=== PATIENT | female | born 1945 | race Caucasian/White ===

== ENCOUNTER 2018-10-17 14:30 | Inpatient (IN) ==
[2018-10-17] MEDS ORDERED: methylPREDNISolone 125 MG/2 ML VIAL IVP ONE (14:59)
[2018-10-17] MEDS ORDERED: Ipratropium/Albuterol Neb 3 ML IH ONE (14:59)
[2018-10-17 15:29] LABS: Basophils # 0.1 K/mcL (0.0-0.2); Basophils % 0.6 %; Eosinophils # 0.2 K/mcL (0.0-0.6); Eosinophils % 2.1 %; Hematocrit 35.6 % (35.3-44.9); Hemoglobin 10.6 g/dL (11.5-15.4); Immature Granulocytes % 0.7 % (0-4); Lymphocytes # 1.1 K/mcL (0.6-4.6); Lymphocytes % 9.9 %; Mean Corpuscular HGB Conc 29.8 g/dL (31.6-35.5); Mean Corpuscular Hemoglobin 27.2 pg (28.0-33.3); Mean Corpuscular Volume 91.3 fL (83.0-100.0); Mean Platelet Volume 9.9 fL (9.4-12.4); Monocytes # 0.4 K/mcL (0.0-1.3); Monocytes % 4.1 %; Neutrophils # 8.8 K/mcL (1.6-8.9); Platelet Count 330 K/mcL (140-400); Red Cell Distribution Width 14.9 % (11.5-14.5); Segmented Neutrophils % 82.6 %
--- NOTE | 2018-10-17 15:44 | Emergency Department Note ---
Disposition Clinical Impression: Acute exacerbation of chronic obstructive airways disease, Pulmonary edema Disposition: Admitted As Inpatient Referrals: Luciano Figueroa MD [Primary Care Provider] - General Adult HPI - General Chief complaint: ED Shortness of Breath/Dyspnea Stated complaint: SHORTNESS OF BREATH Time Seen by Provider: 10/17/18 14:40 Source: patient Mode of arrival: ambulatory Limitations: no limitations Nursing Notes Reviewed: Yes Vital Signs Reviewed: Yes - History of Present Illness Pain Scale: 0 - Related Data Home Medications Medication Instructions Recorded Confirmed Albuterol Neb [Proventil Neb] 2.5 mg IH Q4H 06/01/16 10/17/18 Aspirin [Lo-Dose Aspirin EC] 81 mg PO DAILY 06/01/16 10/17/18 Budesonide Neb [Pulmicort Neb] 0.25 mg IH BID 06/01/16 10/17/18 Diltiazem CD (24hr) [Cardizem CD] 120 mg PO DAILY 06/01/16 10/17/18 Ferrous Sulfate 325 mg PO BID 06/01/16 10/17/18 Insulin Glargine,Hum.rec.anlog 40 unit SQ DAILY 06/01/16 06/01/16 [Lantus Solostar] Insulin LISPRO [Humalog Kwikpen 0 - 9 unit SQ ACHS 06/01/16 10/17/18 U-100] Levothyroxine [Synthroid] 200 mcg PO QAM 06/01/16 10/17/18 Metoprolol [Lopressor] 50 mg PO BID 06/01/16 06/01/16 Montelukast [Singulair] 10 mg PO QPM 06/01/16 10/17/18 Oxycodone HCl 5 mg PO Q6HR PRN 06/01/16 10/17/18 Pantoprazole Sodium [Protonix] 20 mg PO DAILY 06/01/16 06/01/16 Potassium Chloride [Klor-Con 10 meq PO TIDWM 06/01/16 06/01/16 Sprinkle] Apixaban [Eliquis] 5 mg PO BID 10/17/18 10/17/18 Bumetanide [Bumex] 0.5 mg PO DAILY 10/17/18 10/17/18 Dapagliflozin Propanediol [Farxiga] 5 mg PO DAILY 10/17/18 10/17/18 Gabapentin [Neurontin] 300 mg PO TID 10/17/18 10/17/18 Tramadol HCl [Ultram] 50 mg PO QID PRN 10/17/18 10/17/18 Previous Rx's Medication Instructions Recorded Albuterol Sulfate [Proair Hfa] 1 puff IH QID PRN #0 06/04/16 Allergies Allergy/AdvReac Type Severity Reaction Status Date / Time Iodinated Contrast- Oral and Allergy Intermediate See Verified 06/01/16 12:33 IV Dye Comments adhesive tape Allergy Itching Verified 06/01/16 12:34 pentazocine [From Talwin] AdvReac Hives Verified 06/01/16 04:54 Past Medical History - Past Medical History Attestation: Yes The following information was validated with the patient. Source: patient, nursing notes reviewed Medical history: Reports: arthritis, asthma, atrial fibrillation, CHF, DVT, diabetes, fibromyalgia, GERD, hyperlipidemia, hypertension, thyroid disease, other Psychiatric history: Reports: no psych history - Social History Smoking Status: Former smoker Alcohol use: Reports: none Drug use: Reports: none Physical Exam - General Limitations: no limitations General appearance: alert Course Vital Signs Temperature 98.3 F 10/17/18 14:31 Pulse Rate 117 10/17/18 14:31 Respiratory Rate 24 10/17/18 14:31 Blood Pressure 169/92 10/17/18 14:31 O2 Sat by Pulse Oximetry 83 10/17/18 14:31 Temperature 98.3 F 10/17/18 14:31 Pulse Rate 117 10/17/18 14:31 Respiratory Rate 24 10/17/18 14:31 Blood Pressure 169/92 10/17/18 14:31 O2 Sat by Pulse Oximetry 83 10/17/18 14:31 Oxygen Delivery Oxygen Delivery Nasal Cannula Medical Decision Making - MDM Narrative Medical decision making narrative: I reviewed the patient's medication list - Lab Data Lab results reviewed: Yes I reviewed the patient's lab results. - Radiology Data Radiology results reviewed: Yes I reviewed the patient's radiology results. - EKG Data EKG #1 EKG results narrative: EKG shows atrial fibrillation with a rate of 119 bpm QRS duration 87 ms QT interval 331 ms QTC 466 ms R axis of 90 degrees diffuse repolarization abdomen mildly nonspecific is noted. No ST elevation
[2018-10-17] MEDS ORDERED: Furosemide 40 MG/4 ML VIAL IVP ONE (15:46)
[2018-10-17 15:47] LABS: Alanine Aminotransferase 11 Units/L (7-52); Albumin/Globulin Ratio 0.9 (1.1-2.2); Alkaline Phosphatase 117 Units/L (34-104); Aspartate Amino Transferase 18 Units/L (13-39); BUN/Creatinine Ratio 17 (6-26); Bilirubin,Total 0.5 mg/dL (0.3-1.0); Blood Urea Nitrogen 27 mg/dL (8-23); Calcium 9.9 mg/dL (8.6-10.3); Carbon Dioxide 33 mEq/L (23-29); Chloride 96 mEq/L (98-107); Globulin 4.7 g/dL (2.4-3.5); Glucose 203 mg/dL (70-105); Osmolality,Calculated 293 (280-300); Potassium 4.9 mEq/L (3.5-5.1); Sodium 136 mEq/L (136-145); Total Protein 8.7 g/dL (6.4-8.9); Troponin I < 0.03 ng/mL (< 0.04); eGFR For Non-African Americans 32 (> 60)
[2018-10-17] MEDS ORDERED: Ipratropium/Albuterol Neb 3 ML IH SCH (16:15)
[2018-10-17] MEDS ORDERED: Naloxone 0.4 MG/ML INJ IVP PRN (17:09)
[2018-10-17] MEDS ORDERED: traMADol 50 MG TABLET PO PRN (17:09)
[2018-10-17] MEDS: Ipratropium/Albuterol Neb 3 ML IH SCH ×2 (20:39→23:03)
[2018-10-17] MEDS ORDERED: *HR* Digoxin 0.5 MG/2 ML AMPUL IVP ONE (21:02)
[2018-10-17] MEDS ORDERED: *HR* Dextrose 50 % in Water (Syg) 50 ML SYRINGE IVP PRN (21:04)
[2018-10-17] MEDS ORDERED: D5% in Water 1,000 ML IVC PRN (21:04)
[2018-10-17] MEDS ORDERED: Dextrose Gel 15 GM/37.5 ML TUBE PO PRN ×2 (21:04)
[2018-10-17] MEDS: Apixaban 5 MG TABLET PO SCH (22:30)
[2018-10-17] MEDS: *HR* OxyCODONE Immed Rel 5 MG TABLET PO PRN (22:30)
[2018-10-17] MEDS: Gabapentin 300 MG CAPSULE PO SCH (22:31)
[2018-10-17] MEDS: Insulin LISPRO 300 UNITS/3 ML VIAL SQ SCH (22:33)
[2018-10-17] MEDS: Budesonide Neb 0.25 MG/2 ML IH SCH (22:48)
[2018-10-18] MEDS: Ipratropium/Albuterol Neb 3 ML IH SCH ×3 (04:19→12:32)
[2018-10-18 05:18] LABS: Basophils % 0.1 %; Hematocrit 34.5 % (35.3-44.9); Hemoglobin 10.6 g/dL (11.5-15.4); Immature Granulocytes % 0.9 % (0-4); Lymphocytes # 0.7 K/mcL (0.6-4.6); Lymphocytes % 9.1 %; Mean Corpuscular HGB Conc 30.7 g/dL (31.6-35.5); Mean Corpuscular Hemoglobin 27.5 pg (28.0-33.3); Mean Corpuscular Volume 89.4 fL (83.0-100.0); Monocytes % 0.3 %; Neutrophils # 6.6 K/mcL (1.6-8.9); Platelet Count 332 K/mcL (140-400); Red Blood Count 3.86 M/mcL (3.82-4.97); Red Cell Distribution Width 14.9 % (11.5-14.5); Segmented Neutrophils % 89.6 %
[2018-10-18 05:37] LABS: Calcium 9.7 mg/dL (8.6-10.3); Potassium 5.1 mEq/L (3.5-5.1)
[2018-10-18] MEDS ORDERED: Aspirin Enteric Coated 81 MG Tablet PO SCH (09:00)
[2018-10-18] MEDS ORDERED: Nitroglycerin 0.4 MG TAB.SUBL SL ONE (09:11)
[2018-10-18] MEDS: Diltiazem CD (24hr) 120 MG CAPSULE PO SCH (09:14)
[2018-10-18] MEDS: Bumetanide 1 MG TABLET PO SCH (09:14)
[2018-10-18] MEDS: Apixaban 5 MG TABLET PO SCH ×2 (09:14→21:16)
[2018-10-18] MEDS: Insulin LISPRO 300 UNITS/3 ML VIAL SQ SCH ×4 (09:15→21:21)
[2018-10-18] MEDS: Gabapentin 300 MG CAPSULE PO SCH ×3 (09:15→21:16)
[2018-10-18] MEDS: FARXIGA 5MG PO SCH (09:17)
[2018-10-18] MEDS ORDERED: *HR* Digoxin 0.5 MG/2 ML AMPUL IVP ONE (09:55)
--- NOTE | 2018-10-18 10:02 | Internal Med History&Physical ---
Date of Encounter: 10/18/18 Time of Encounter: 09:30 Assessment and Plan (1) CHF (congestive heart failure) Current visit: Yes Status: Acute Echocardiogram at [facility] 06/02/2016 showed LVEF of 60%. Continue Bumex and metoprolol. Add isosorbide. Qualifiers: Heart failure type: diastolic Heart failure chronicity: acute on chronic Qualified Code(s): I50.33 - Acute on chronic diastolic (congestive) heart failure (2) Pneumonia Current visit: Yes Status: Acute Suspected. WBC was normal but there was left shift on differential. She will be started on Rocephin and Zithromax empirically. CT scan of chest will be done to further evaluate. Qualifiers: Pneumonia type: due to unspecified organism Laterality: bilateral Lung location: unspecified part of lung Qualified Code(s): J18.9 - Pneumonia, unspecified organism (3) Anemia Current visit: Yes Status: Acute Suspect due to chronic disease. Anemia testing 10/14/2018 showed iron 37, transferrin saturation 13%, transferrin 209, ferritin 145, and B12 969. Continue to monitor hemoglobin. Qualifiers: Anemia type: unspecified type Qualified Code(s): D64.9 - Anemia, unspecified (4) T2DM (type 2 diabetes mellitus) Current visit: No Status: Chronic Hemoglobin A1c was 8.7% on 10/14/2018. Continue insulin and Accu-Cheks with SSI. 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 (6) Hypothyroidism Current visit: Yes Status: Chronic TSH was elevated at 14.846 on 10/14/2018. Increase Synthroid. Qualifiers: Hypothyroidism type: unspecified Qualified Code(s): E03.9 - Hypothyroidism, unspecified (7) Weight loss Current visit: Yes Status: Acute CT of chest, abdomen, and pelvis have been ordered to further evaluate. Internal Medicine - H&P: HPI Chief complaint: Dyspnea Admitted From: Emergency Dept Plans for Post Hospital Care: Home History of present illness: Ms. Fink is a 73 year old female who came to emergency room complaining of worsening dyspnea the preceding 5 days. She reports a cough productive of yellow sputum with occasional blood tinge. She came to emergency room and was evaluated and found to have bilateral pneumonia with probable heart failure. She was admitted to [facility] floor for ongoing care needs. Her respiratory history is significant for having smoked from age [age] on occasional basis. She has been told she has COPD from PFTs but does not use home oxygen. Cardiac history is significant for hypertension. She has chronic atrial fibrillation and is on Eliquis. 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 She denies coronary intervention done at the time of the heart cath preceding the aortic valve surgery. She has history of right leg DVT after total knee replacement and left arm DVT after cholecystectomy. She denies pulmonary emboli. She has a history of heart failure. She reports her last echocardiogram was summer. She has mitral valve disease but does not know specific details. Past Med Surg Social Fam HX - Past Medical History Medical history: arthritis, asthma, atrial fibrillation, CHF, DVT, diabetes, fibromyalgia, GERD, hyperlipidemia, hypertension, thyroid disease, other Additional medical history: LEAKING MITRAL VALVE, REPLACED AORTIC VALVE Psychiatric history: no psych history - Past Surgical History Additional surgical history: DVT IN LEG AFTER KNEE SURG, bilateral knee replacement - Social History Smoking Status: Former smoker Alcohol use: none Drug use: none Internal Medicine - H&P: Meds Albuterol Neb [Proventil Neb] 2.5 mg IH Q4H 06/01/16 [History] Aspirin [Lo-Dose Aspirin EC] 81 mg PO DAILY 06/01/16 [History] Budesonide Neb [Pulmicort Neb] 0.25 mg IH BID 06/01/16 [History] Diltiazem CD (24hr) [Cardizem CD] 120 mg PO DAILY 06/01/16 [History] Ferrous Sulfate 325 mg PO BID 06/01/16 [History] Insulin Glargine,Hum.rec.anlog [Lantus Solostar] 40 unit SQ DAILY 06/01/16 [History] Insulin LISPRO [Humalog Kwikpen U-100] 0 - 9 unit SQ ACHS 06/01/16 [History] Levothyroxine [Synthroid] 200 mcg PO QAM 06/01/16 [History] Metoprolol [Lopressor] 50 mg PO BID 06/01/16 [History] Montelukast [Singulair] 10 mg PO QPM 06/01/16 [History] Oxycodone HCl 5 mg PO Q6HR PRN 06/01/16 [History] Pantoprazole Sodium [Protonix] 20 mg PO DAILY 06/01/16 [History] Potassium Chloride [Klor-Con Sprinkle] 10 meq PO TIDWM 06/01/16 [History] Albuterol Sulfate [Proair Hfa] 1 puff IH QID PRN #0 06/04/16 [Rx] Apixaban [Eliquis] 5 mg PO BID 10/17/18 [History] Bumetanide [Bumex] 0.5 mg PO DAILY 10/17/18 [History] Dapagliflozin Propanediol [Farxiga] 5 mg PO DAILY 10/17/18 [History] Gabapentin [Neurontin] 300 mg PO TID 10/17/18 [History] Tramadol HCl [Ultram] 50 mg PO QID PRN 10/17/18 [History] Allergy/AdvReac Type Severity Reaction Status Date / Time Iodinated Contrast- Oral and Allergy Intermediate See Verified 06/01/16 12:33 IV Dye Comments adhesive tape Allergy Itching Verified 06/01/16 12:34 pentazocine [From Talwin] AdvReac Hives Verified 06/01/16 04:54 All Systems PM: A 10-system review of systems was performed and is negative for pertinent findings except as documented above in the HPI. Review of systems: Gen.: She states her weight has decreased approximately 25 pounds in the past year, unintentionally Cardiovascular: As per history of present illness Respiratory: As per history of present illness GI: She has had cholecystectomy. She denies disorders of her liver or exocrine pancreas : She has chronic kidney disease stage III and followed with [facility] framing carpenter in the past. She has relocated to this area but has not yet established with a framing carpenter. She denies other kidney or bladder disorders. Neurologic: She denies large distribution strokes or seizures. Endocrine: She was diagnosed with DM 2 approximately 1998. She had subtotal thyroidectomy for goiter and now has hypothyroidism. She is uncertain of her lipid status. Hematology/oncology: She has anemia but denies internal malignancies or other blood disorders. Psychiatric: She denies anxiety depression or other mental health issues. [place] skeletal: She has DJD. She had right shoulder surgery for a spur and has had bilateral knee replacements. She denies gout or other bone joint or muscle disorders. - Constitutional Vitals: Temp Pulse Resp BP Pulse Ox 97.7 F 132 22 141/95 96 10/18/18 08:06 10/18/18 08:06 10/18/18 08:25 10/18/18 08:06 10/18/18 08:25 Exam: Gen.: She is a well-developed obese female sitting in bed who appears slightly dyspneic HEENT: Head is atraumatic and normocephalic. Eyes: EOMI. There is no scleral icterus. Mouth: Mucosa is moist. She is wearing oxygen by nasal mask Neck: There is no thyromegaly or adenopathy noted. Heart: Regular without murmurs gallops or ectopics Lungs: She has diminished breath sounds in the left base with egophony. No expiratory wheezing is heard. Abdomen: Soft and nontender. No masses or guarding are noted. Extremities: There is no cyanosis or clubbing noted. She has trace edema bilaterally. She has mild DJD changes of her hands. Neurologic: Mental status: She is talkative and a good historian. Cranial nerves: Smile is symmetric. Forehead wrinkles bilaterally. Tongue protrudes midline. EOMI. Motor: There is no pronator drift. Cerebellar: Finger to nose is intact bilaterally. Skin: Warm and dry Internal Med - H&P Results - Labs CBC & Chem 7: 10/18/18 05:05 10/18/18 05:05 Labs: Short CBC 10/17/18 10/18/18 Range/Units 15:13 05:05 WBC 10.7 7.4 (4.3-11.1) K/mcL Hgb 10.6 L 10.6 L (11.5-15.4) g/dL Hct 35.6 34.5 L (35.3-44.9) % Plt Count 330 332 (140-400) K/mcL Neutrophils # 8.8 6.6 (1.6-8.9) K/mcL BMP 10/17/18 10/18/18 15:13 05:05 Sodium 136 132 L Potassium 4.9 5.1 Chloride 96 L 92 L Carbon Dioxide 33 H 32 H BUN 27 H 29 H Creatinine 1.60 H 1.71 H Glucose 203 H 353 H Calcium 9.9 9.7 Cardiac Enzymes 10/17/18 10/17/18 10/17/18 Range/Units 15:13 17:30 23:36 Troponin I < 0.03 < 0.03 < 0.03 (< 0.04) ng/mL 10/18/18 Range/Units 05:05 Troponin I 0.03 (< 0.04) ng/mL Liver Function 10/17/18 Range/Units 15:13 Total Bilirubin 0.5 (0.3-1.0) mg/dL AST 18 (13-39) Units/L ALT 11 (7-52) Units/L Alkaline Phosphatase 117 H (34-104) Units/L Albumin 4.0 (3.5-5.7) g/dL - Impressions ITS Impressions Chest X-Ray 10/17/18 14:47 IMPRESSION: Moderate bilateral pleural effusions with adjacent airspace opacities, likely atelectasis. There is mild pulmonary edema. Findings may reflect congestive heart failure in the appropriate clinical setting. D/ / Tati Marrufo MD / Tati Marrufo MD Interpreting Provider: Tati Marrufo MD Chest X-Ray 10/18/18 07:00 IMPRESSION: CHF, unchanged. D/ / Daniel Pearl MD / Daniel Pearl MD Interpreting Provider: Daniel Pearl MD
[2018-10-18] MEDS: Budesonide Neb 0.25 MG/2 ML IH SCH ×2 (10:30→20:42)
[2018-10-18] MEDS: Isosorbide MONOnitrate (24 HR) 30 MG TAB.ER.24H PO SCH (11:23)
[2018-10-18] MEDS ORDERED: Albuterol 2.5 MG/3 ML NEBULIZER IH PRN (13:20)
[2018-10-18] MEDS: cefTRIAXone 1,000 MG in Water for inj. (sterile) 20 ML 10 ML IVP SCH (13:43)
[2018-10-18] MEDS: Azithromycin 500 MG in D5% in Water 250 ML IVPB SCH (13:43)
[2018-10-18] MEDS: *HR* OxyCODONE Immed Rel 5 MG TABLET PO PRN (21:15)
[2018-10-18] MEDS ORDERED: Insulin LISPRO 300 UNITS/3 ML VIAL SQ SCH (21:15)
[2018-10-18] MEDS: Lactobacillus 1 EACH CAP.SPRINK PO SCH (21:15)
[2018-10-19] MEDS: *HR* OxyCODONE Immed Rel 5 MG TABLET PO PRN (04:13)
[2018-10-19 06:44] LABS: Basophils % 0.1 %; Hemoglobin 10.3 g/dL (11.5-15.4); Immature Granulocytes % 0.7 % (0-4); Lymphocytes % 7.4 %; Mean Corpuscular HGB Conc 31.2 g/dL (31.6-35.5); Mean Corpuscular Hemoglobin 27.7 pg (28.0-33.3); Mean Corpuscular Volume 88.7 fL (83.0-100.0); Mean Platelet Volume 10.2 fL (9.4-12.4); Monocytes # 0.8 K/mcL (0.0-1.3); Platelet Count 363 K/mcL (140-400); Red Blood Count 3.72 M/mcL (3.82-4.97); Red Cell Distribution Width 14.9 % (11.5-14.5); Segmented Neutrophils % 85.8 %
[2018-10-19 06:58] LABS: Neutrophils # 11.7 K/mcL (1.6-8.9)
[2018-10-19 06:59] LABS: Calcium 9.4 mg/dL (8.6-10.3); Potassium 5.1 mEq/L (3.5-5.1)
[2018-10-19] MEDS: Gabapentin 300 MG CAPSULE PO SCH ×3 (08:19→21:18)
[2018-10-19] MEDS: Lactobacillus 1 EACH CAP.SPRINK PO SCH ×2 (08:20→21:17)
[2018-10-19] MEDS: Isosorbide MONOnitrate (24 HR) 30 MG TAB.ER.24H PO SCH (08:20)
[2018-10-19] MEDS: Diltiazem CD (24hr) 120 MG CAPSULE PO SCH (08:21)
[2018-10-19] MEDS: Apixaban 5 MG TABLET PO SCH ×2 (08:21→21:18)
[2018-10-19] MEDS: Bumetanide 1 MG TABLET PO SCH (08:21)
[2018-10-19] MEDS: Insulin LISPRO 300 UNITS/3 ML VIAL SQ SCH ×4 (08:22→21:18)
[2018-10-19] MEDS: *HR* Promethazine 25 MG/ML VIAL IVP PRN ×2 (08:23→14:37)
[2018-10-19] MEDS: FARXIGA 5MG PO SCH (08:23)
--- NOTE | 2018-10-19 09:48 | Internal Med Progress Note ---
Date of Encounter: 10/19/18 Time of Encounter: 09:40 - Assessment and plan (1) CHF (congestive heart failure) Current Visit: Yes Status: Acute Assessment and plan: October 19. Echocardiogram at [facility] 06/02/2016 showed LVEF of 60%. Continue Bumex, Imdur and metoprolol. Add Lanoxin for CHF and rate control. Qualifiers: Heart failure type: diastolic Heart failure chronicity: acute on chronic Qualified Code(s): I50.33 - Acute on chronic diastolic (congestive) heart failure (2) Pneumonia Current Visit: Yes Status: Acute Assessment and plan: October 19. CT scan showed bilateral moderate pleural effusions with atelectasis but no obvious infiltrate. WBC has elevated above normal with left shift present. Continue Rocephin and Zithromax with lactobacillus. Qualifiers: Pneumonia type: due to unspecified organism Laterality: bilateral Lung location: unspecified part of lung Qualified Code(s): J18.9 - Pneumonia, unspecified organism (3) Anemia Current Visit: Yes Status: Acute Assessment and plan: October 19. Anemia testing 10/14/2018 showed iron 37, transferrin saturation 13%, transferrin 209, ferritin 145, and B12 969. Continue to monitor hemoglobin. Qualifiers: Anemia type: unspecified type Qualified Code(s): D64.9 - Anemia, unspecified (4) T2DM (type 2 diabetes mellitus) Current Visit: No Status: Chronic Assessment and plan: October 19. Hemoglobin A1c was 8.7% on 10/14/2018. Continue basal insulin and Accu-Cheks with SSI. 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 Monitor renal indices. (6) Hypothyroidism Current Visit: Yes Status: Chronic Assessment and plan: October 19. Continue Synthroid 250 g daily. Qualifiers: Hypothyroidism type: unspecified Qualified Code(s): E03.9 - Hypothyroidism, unspecified (7) Weight loss Current Visit: Yes Status: Acute Assessment and plan: October 19. CT scan of chest abdomen and pelvis showed no worrisome pathology. (8) Atrial fibrillation Current Visit: Yes Status: Chronic Assessment and plan: October 19. Presently has rapid ventricular response. Continue Cardizem and Lopressor with Eliquis. Start Lanoxin. Qualifiers: Atrial fibrillation type: chronic Qualified Code(s): I48.2 - Chronic atrial fibrillation - Subjective Interval history: October 19. She has no new complaints and feels better. - Constitutional Vitals: Temp Pulse Resp BP Pulse Ox 98.2 F 125 16 121/72 89 10/19/18 08:10 10/19/18 08:10 10/19/18 08:10 10/19/18 08:10 10/19/18 08:10 Exam: She is sitting in bed resting comfortably. Her lungs show diminished breath sounds at the bases. No wheezes or crackles are heard. Heart is irregularly irregular with rate approximately 104/m. Extremities show no edema. I reviewed her medications and lab results. Internal Medicine: Result - Labs CBC & Chem 7: 10/19/18 06:08 10/19/18 06:08 Labs: Short CBC 10/19/18 Range/Units 06:08 WBC 13.6 H D (4.3-11.1) K/mcL Hgb 10.3 L (11.5-15.4) g/dL Hct 33.0 L (35.3-44.9) % Plt Count 363 (140-400) K/mcL Neutrophils # 11.7 H (1.6-8.9) K/mcL BMP 10/19/18 06:08 Sodium 134 L Potassium 5.1 Chloride 92 L Carbon Dioxide 35 H BUN 36 H Creatinine 1.67 H Glucose 223 H Calcium 9.4 - Impressions Impressions Abdomen/Pelvis CT 10/18/18 09:56 IMPRESSION: 1. Bilateral moderate pleural effusions with associated atelectasis. 2. No acute abnormality within the abdomen and pelvis. 3. Chronic changes noted above. D/ / Tyrell Bejarano MD / Tyrell Bejarano MD Interpreting Provider: Tyrell Bejarano MD Chest CT 10/18/18 09:56 IMPRESSION: 1. Bilateral moderate pleural effusions with associated atelectasis. 2. No acute abnormality within the abdomen and pelvis. 3. Chronic changes noted above. D/ / Tyrell Bejarano MD / Tyrell Bejarano MD Interpreting Provider: Tyrell Bejarano MD Consult Discharge Plan - Plan Referrals: Luciano Figueroa MD [Primary Care Provider] - 1 week
[2018-10-19] MEDS ORDERED: *HR* Digoxin 0.25 MG TABLET PO ONE (09:53)
[2018-10-19] MEDS: Insulin DETEMIR 100 UNIT/ML X5UNITS SQ SCH ×2 (10:59→21:18)
[2018-10-19] MEDS: Budesonide Neb 0.25 MG/2 ML IH SCH ×2 (11:18→20:34)
[2018-10-19] MEDS: Azithromycin 500 MG in D5% in Water 250 ML IVPB SCH (14:43)
[2018-10-19] MEDS: cefTRIAXone 1,000 MG in Water for inj. (sterile) 20 ML 10 ML IVP SCH (14:44)
--- NOTE | 2018-10-19 15:33 | Electrocardiograph Report ---
[address] [place] [address] Test Date: 2018-10-17 Pat Name: [facility] Department: EDP-12 Room: [facility] Gender: F Pathological Technician: : 1945 Requested By: Elvis Call Order Number: [id number] Reading MD: Dileep Jacobson Measurements Intervals [place] Rate: 119 P: FL: QRS: 90 QRSD: 87 T: -51 QT: 331 QTc: 466 Interpretive Statements Atrial fibrillation Borderline right axis deviation Nonspecific repol abnormality, diffuse leads Electronically Signed On 10-19-2018 15:32:04 EST by Dileep Jacobson
[2018-10-19 20:46] LABS: Bilirubin,Urine Negative (Negative); Blood,Urine Trace-intact (Negative); Glucose,Urine (UA) Normal (Normal); Ketones,Urine Negative (Negative); Leukocyte Esterase,Urine Trace (Negative); Nitrite,Urine Negative (Negative); PH,Urine 6.5 pH Units (5.0-8.0); Protein,Urine Negative (Neg-Trace); Urobilinogen,Urine Normal (Normal)
[2018-10-19 20:49] LABS: Color,Urine Light Yellow (Yellow)
[2018-10-19 20:50] LABS: Clarity,Urine Slightly Cloudy (Clear)
[2018-10-19 21:05] LABS: Bacteria,Urine Few per hpf (None-Few); Mucus,Urine Few (Few); RBC,Urine 0-3 per hpf (0-3); Squamous Epithelial Cell,Urine Few per lpf (None-Few)
[2018-10-20 06:54] LABS: Basophils # 0.1 K/mcL (0.0-0.2); Basophils % 0.7 %; Eosinophils # 0.1 K/mcL (0.0-0.6); Eosinophils % 1.3 %; Hematocrit 36.1 % (35.3-44.9); Hemoglobin 10.9 g/dL (11.5-15.4); Immature Granulocytes % 0.5 % (0-4); Lymphocytes # 1.6 K/mcL (0.6-4.6); Lymphocytes % 15.6 %; Mean Corpuscular HGB Conc 30.2 g/dL (31.6-35.5); Mean Corpuscular Hemoglobin 27.4 pg (28.0-33.3); Mean Corpuscular Volume 90.7 fL (83.0-100.0); Mean Platelet Volume 10.3 fL (9.4-12.4); Monocytes % 10.1 %; Neutrophils # 7.2 K/mcL (1.6-8.9); Platelet Count 349 K/mcL (140-400); Red Blood Count 3.98 M/mcL (3.82-4.97); Red Cell Distribution Width 14.8 % (11.5-14.5); Segmented Neutrophils % 71.8 %
[2018-10-20 07:17] LABS: Calcium 9.3 mg/dL (8.6-10.3); Potassium 4.6 mEq/L (3.5-5.1)
[2018-10-20] MEDS: Isosorbide MONOnitrate (24 HR) 30 MG TAB.ER.24H PO SCH (08:11)
[2018-10-20] MEDS: Diltiazem CD (24hr) 120 MG CAPSULE PO SCH (08:11)
[2018-10-20] MEDS: *HR* Digoxin 0.125 MG TABLET PO SCH (08:11)
[2018-10-20] MEDS: Bumetanide 1 MG TABLET PO SCH (08:55)
[2018-10-20] MEDS: Gabapentin 300 MG CAPSULE PO SCH ×3 (08:55→19:57)
[2018-10-20] MEDS: Apixaban 5 MG TABLET PO SCH ×2 (08:55→19:57)
[2018-10-20] MEDS: FARXIGA 5MG PO SCH (08:56)
[2018-10-20] MEDS: Insulin DETEMIR 100 UNIT/ML X5UNITS SQ SCH ×2 (08:56→20:34)
[2018-10-20] MEDS: Lactobacillus 1 EACH CAP.SPRINK PO SCH ×2 (08:56→19:57)
[2018-10-20] MEDS: Insulin LISPRO 300 UNITS/3 ML VIAL SQ SCH ×4 (08:57→20:00)
[2018-10-20] MEDS: Budesonide Neb 0.25 MG/2 ML IH SCH ×2 (09:36→22:47)
[2018-10-20] MEDS: *HR* Promethazine 25 MG/ML VIAL IVP PRN (12:35)
[2018-10-20] MEDS: cefTRIAXone 1,000 MG in Water for inj. (sterile) 20 ML 10 ML IVP SCH (13:40)
[2018-10-20] MEDS: Azithromycin 500 MG in D5% in Water 250 ML IVPB SCH (13:41)
[2018-10-20] MEDS: Ondansetron ODT 4 MG TAB.RAPDIS SL PRN (14:47)
--- NOTE | 2018-10-20 14:55 | Internal Med Progress Note ---
Date of Encounter: 10/20/18 Time of Encounter: 14:48 - Assessment and plan (1) CHF (congestive heart failure) Current Visit: Yes Status: Acute Assessment and plan: October 19. Echocardiogram at [facility] 06/02/2016 showed LVEF of 60%. Continue Bumex, Imdur and metoprolol. Add Lanoxin for CHF and rate control. October 20. Continue Bumex, Imdur, metoprolol, and Lanoxin. Qualifiers: Heart failure type: diastolic Heart failure chronicity: acute on chronic Qualified Code(s): I50.33 - Acute on chronic diastolic (congestive) heart failure (2) Pneumonia Current Visit: Yes Status: Acute Assessment and plan: October 19. CT scan showed bilateral moderate pleural effusions with atelectasis but no obvious infiltrate. WBC has elevated above normal with left shift present. Continue Rocephin and Zithromax with lactobacillus. October 20. WBC has normalized with resolution of left shift. Continue Rocephin and Zithromax with lactobacillus. Qualifiers: Pneumonia type: due to unspecified organism Laterality: bilateral Lung location: unspecified part of lung Qualified Code(s): J18.9 - Pneumonia, unspecified organism (3) Anemia Current Visit: Yes Status: Acute Assessment and plan: October 19. Anemia testing 10/14/2018 showed iron 37, transferrin saturation 13%, transferrin 209, ferritin 145, and B12 969. Continue to monitor hemoglobin. October 20. Hemoglobin improved to 10.9. Continue to monitor. Qualifiers: Anemia type: unspecified type Qualified Code(s): D64.9 - Anemia, unspecified (4) T2DM (type 2 diabetes mellitus) Current Visit: No Status: Chronic Assessment and plan: October 19. Hemoglobin A1c was 8.7% on 10/14/2018. Continue basal insulin and Accu-Cheks with SSI. 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 Monitor renal indices. (6) Hypothyroidism Current Visit: Yes Status: Chronic Assessment and plan: October 19. Continue Synthroid 250 g daily. Qualifiers: Hypothyroidism type: unspecified Qualified Code(s): E03.9 - Hypothyroidism, unspecified (7) Weight loss Current Visit: Yes Status: Acute Assessment and plan: October 19. CT scan of chest abdomen and pelvis showed no worrisome pathology. (8) Atrial fibrillation Current Visit: Yes Status: Chronic Assessment and plan: October 19. Presently has rapid ventricular response. Continue Cardizem and Lopressor with Eliquis. Start Lanoxin. October 20. Ventricular rate has slowed to approximately 105-110/m. Continue Cardizem, Lopressor, Eliquis, and Lanoxin. Qualifiers: Atrial fibrillation type: chronic Qualified Code(s): I48.2 - Chronic atrial fibrillation - Subjective Interval history: October 19. She has no new complaints and feels better. October 20. She has no new complaints and feels less dyspneic but not significantly improved overall. - Constitutional Vitals: Temp Pulse Resp BP Pulse Ox 97.6 F 101 16 117/62 96 10/20/18 11:59 10/20/18 11:59 10/20/18 11:59 10/20/18 11:59 10/20/18 11:59 Exam: She is resting comfortably in bed and appears in no acute distress. She is wearing oxygen by nasal cannula. Her affect is overall cheerful. I reviewed her medications and lab results. Internal Medicine: Result - Labs CBC & Chem 7: 10/20/18 05:40 10/20/18 05:40 Labs: Short CBC 10/20/18 Range/Units 05:40 WBC 10.1 (4.3-11.1) K/mcL Hgb 10.9 L (11.5-15.4) g/dL Hct 36.1 (35.3-44.9) % Plt Count 349 (140-400) K/mcL Neutrophils # 7.2 (1.6-8.9) K/mcL BMP 10/20/18 05:40 Sodium 139 Potassium 4.6 Chloride 94 L Carbon Dioxide 39 H BUN 38 H Creatinine 1.68 H Glucose 159 H Calcium 9.3 Urine 10/19/18 Range/Units 19:50 Urine Color Light Yellow (Yellow) Urine Clarity Slightly Cloudy A (Clear) Urine pH 6.5 (5.0-8.0) pH Units Ur Specific [place] 1.010 (1.010-1.025) Urine Protein Negative (Neg-Trace) mg/dL Urine Glucose (UA) Normal (Normal) mg/dL Consult Discharge Plan - Plan Referrals: Luciano Figueroa MD [Primary Care Provider] - 1 week
[2018-10-20] MEDS: *HR* OxyCODONE Immed Rel 5 MG TABLET PO PRN (19:57)
[2018-10-21] MEDS: *HR* Promethazine 25 MG/ML VIAL IVP PRN
[2018-10-21 06:34] LABS: Basophils # 0.1 K/mcL (0.0-0.2); Basophils % 0.6 %; Eosinophils # 0.3 K/mcL (0.0-0.6); Eosinophils % 2.8 %; Hematocrit 35.9 % (35.3-44.9); Hemoglobin 10.9 g/dL (11.5-15.4); Immature Granulocytes % 0.6 % (0-4); Lymphocytes # 1.5 K/mcL (0.6-4.6); Lymphocytes % 15.4 %; Mean Corpuscular HGB Conc 30.4 g/dL (31.6-35.5); Mean Corpuscular Hemoglobin 27.4 pg (28.0-33.3); Mean Corpuscular Volume 90.2 fL (83.0-100.0); Mean Platelet Volume 10.3 fL (9.4-12.4); Monocytes % 10.5 %; Neutrophils # 6.6 K/mcL (1.6-8.9); Platelet Count 321 K/mcL (140-400); Red Blood Count 3.98 M/mcL (3.82-4.97); Red Cell Distribution Width 14.8 % (11.5-14.5); Segmented Neutrophils % 70.1 %
[2018-10-21 06:58] LABS: Calcium 9.2 mg/dL (8.6-10.3); Digoxin 1.6 ng/mL (0.8-2.0); Potassium 4.5 mEq/L (3.5-5.1)
[2018-10-21] MEDS: Budesonide Neb 0.25 MG/2 ML IH SCH (09:19)
[2018-10-21] MEDS: Ondansetron ODT 4 MG TAB.RAPDIS SL PRN ×2 (09:38→14:20)
[2018-10-21] MEDS: Lactobacillus 1 EACH CAP.SPRINK PO SCH (09:38)
[2018-10-21] MEDS: Diltiazem CD (24hr) 120 MG CAPSULE PO SCH (09:39)
[2018-10-21] MEDS: Bumetanide 1 MG TABLET PO SCH (09:39)
[2018-10-21] MEDS: *HR* Digoxin 0.125 MG TABLET PO SCH (09:39)
[2018-10-21] MEDS: Apixaban 5 MG TABLET PO SCH (09:39)
[2018-10-21] MEDS: Insulin DETEMIR 100 UNIT/ML X5UNITS SQ SCH (09:39)
[2018-10-21] MEDS: Gabapentin 300 MG CAPSULE PO SCH (09:39)
[2018-10-21] MEDS: Insulin LISPRO 300 UNITS/3 ML VIAL SQ SCH ×2 (09:40→12:48)
[2018-10-21] MEDS: Isosorbide MONOnitrate (24 HR) 30 MG TAB.ER.24H PO SCH (09:40)
[2018-10-21] MEDS: FARXIGA 5MG PO SCH (09:41)
[2018-10-21 11:26] VITALS: BP 113/60
--- NOTE | 2018-10-21 11:37 | Discharge Summary ---
Orders not resulted at time of discharge: Pending orders 10/17/18 15:18 Culture,Blood [BC] Stat 10/19/18 19:50 Culture,Urine [RM] Routine Date of Encounter: 10/21/18 Time of Encounter: 11:30 - Discharge Diagnosis (1) CHF (congestive heart failure) Priority: Primary Status: Acute Qualifiers: Heart failure type: diastolic Heart failure chronicity: acute on chronic Qualified Code(s): I50.33 - Acute on chronic diastolic (congestive) heart failure (2) Pneumonia Priority: Secondary Status: Acute Qualifiers: Pneumonia type: due to unspecified organism Laterality: bilateral Lung location: unspecified part of lung Qualified Code(s): J18.9 - Pneumonia, unspecified organism (3) Anemia Priority: Secondary Status: Acute Qualifiers: Anemia type: unspecified type Qualified Code(s): D64.9 - Anemia, unspecified (4) T2DM (type 2 diabetes mellitus) Priority: Secondary Status: Chronic Qualifiers: Diabetes mellitus long term care pharmacist insulin use: unspecified care home insulin use status Diabetes mellitus complication status: with kidney complications Diabetes mellitus complication detail: with chronic kidney disease Chronic kidney disease stage: stage 4 (severe) Qualified Code(s): E11.22 - Type 2 diabetes mellitus with diabetic chronic kidney disease; N18.4 - Chronic kidney disease, stage 4 (severe) (5) CKD (chronic kidney disease) stage 4, GFR 15-29 ml/min Priority: Secondary Status: Chronic (6) Hypothyroidism Priority: Secondary Status: Chronic Qualifiers: Hypothyroidism type: unspecified Qualified Code(s): E03.9 - Hypothyroidism, unspecified (7) Weight loss Priority: Secondary Status: Acute (8) Atrial fibrillation Priority: Secondary Status: Chronic Qualifiers: Atrial fibrillation type: chronic Qualified Code(s): I48.2 - Chronic atrial fibrillation Hospital course: Ms. Fink is a 73 year old female who came to emergency room complaining of worsening dyspnea the preceding 5 days. She reports a cough productive of yellow sputum with occasional blood tinge. She came to emergency room and was evaluated and found to have bilateral pneumonia with probable heart failure. She was admitted to [facility] floor for ongoing care needs. Initial orders were written by the emergency room physician. I saw her on October 18 and performed a history and physical. She was started on isosorbide and Lanoxin for heart failure. Bumex and metoprolol were continued. She was started on Rocephin and Zithromax for pneumonia. She had gradual lessening of dyspnea. CT of chest abdomen pelvis was done to further evaluate weight loss and possible pneumonia. She had bilateral moderate pleural effusions with associated atelectasis but no obvious infiltrate. No worrisome findings of malignancy were seen. She will continue with antibiotics in swing bed. Anemia testing done 10/14/2018 was reviewed. CBC was monitored and hemoglobin remained stable. TSH on 10/14/2018 returned elevated at 14.846. Synthroid dose was increased to 250 g daily. Ventricular rate remained approximately 105/m on Cardizem Lopressor and Lanoxin. Heart rate will be monitored. She will continue therapy in swing bed until stable for discharge home. - Time Spent with Patient Total time spent providing and/or coordinating discharge services: - Discharge Medications Prescriptions: Cefuroxime PO [Ceftin] 500 mg PO Q12HR 2 Days tablet Azithromycin [Zithromax] 250 mg PO DAILY 2 Days tablet Home Medications: Albuterol Neb [Proventil Neb] 2.5 mg IH Q4H 06/01/16 [History] Aspirin [Lo-Dose Aspirin EC] 81 mg PO DAILY 06/01/16 [History] Budesonide Neb [Pulmicort Neb] 0.25 mg IH BID 06/01/16 [History] Diltiazem CD (24hr) [Cardizem CD] 120 mg PO DAILY 06/01/16 [History] Ferrous Sulfate 325 mg PO BID 06/01/16 [History] Metoprolol [Lopressor] 50 mg PO BID 06/01/16 [History] Montelukast [Singulair] 10 mg PO QPM 06/01/16 [History] Oxycodone HCl 5 mg PO Q6HR PRN 06/01/16 [History] Albuterol Sulfate [Proair Hfa] 1 puff IH QID PRN #0 06/04/16 [Rx] Apixaban [Eliquis] 5 mg PO BID 10/17/18 [History] Bumetanide [Bumex] 0.5 mg PO DAILY 10/17/18 [History] Dapagliflozin Propanediol [Farxiga] 5 mg PO DAILY 10/17/18 [History] Gabapentin [Neurontin] 300 mg PO TID 10/17/18 [History] Tramadol HCl [Ultram] 50 mg PO QID PRN 10/17/18 [History] Azithromycin [Zithromax] 250 mg PO DAILY 2 Days tablet 10/21/18 [Rx] Cefuroxime PO [Ceftin] 500 mg PO Q12HR 2 Days tablet 10/21/18 [Rx] Digoxin [Lanoxin] 0.125 mg PO DAILY tablet 10/21/18 [Rx] Insulin DETEMIR [Levemir] 10 unit SQ BID [id number] 10/21/18 [Rx] Isosorbide MONOnitrate (24 HR) [Imdur] 30 mg PO DAILY tab.er.24h 10/21/18 [Rx] Lactobacillus [Culturelle] 1 each PO BID 2 Days cap.sprink 10/21/18 [Rx] Levothyroxine [Synthroid] 250 mcg PO 0630 tablet 10/21/18 [Rx] Allergies/Adverse Reactions: Allergy/AdvReac Type Severity Reaction Status Date / Time Iodinated Contrast- Oral and Allergy Intermediate See Verified 06/01/16 12:33 IV Dye Comments adhesive tape Allergy Itching Verified 06/01/16 12:34 pentazocine [From Talwin] AdvReac Hives Verified 06/01/16 04:54 Date of admission: 10/18/18 13:42 Primary care physician: Luciano Figueroa MD - Constitutional Vitals: Temp Pulse Resp BP Pulse Ox 98.1 F 104 16 113/60 95 10/21/18 11:00 10/21/18 11:00 10/21/18 11:00 10/21/18 11:00 10/21/18 11:00 - Patient Status Disposition: Transfer Hospital Swing Bed - Discharge Instructions - Diet and Activity Activity: as per physical therapy Diet: diabetic diet
== END 2018-10-21 14:27 | disposition other institution (70) | DRG 291 ==
LOC: EMEROOPIK 14:30 → INPPIK 14:30
PROVIDERS: ADMIT Internal Medicine; ATTEND Internal Medicine

== ENCOUNTER 2018-10-21 12:20 | Inpatient (IN) ==
[2018-10-21] MEDS ORDERED: traMADol 50 MG TABLET PO PRN (14:32)
[2018-10-21] MEDS ORDERED: *HR* Promethazine 25 MG/ML VIAL IM PRN (14:35)
[2018-10-21] MEDS: Albuterol 2.5 MG/3 ML NEBULIZER IH SCH ×4 (15:40→23:10)
[2018-10-21] MEDS: Gabapentin 300 MG CAPSULE PO SCH ×2 (15:48→20:59)
[2018-10-21] MEDS: Azithromycin 250 MG TABLET PO SCH (15:48)
[2018-10-21] MEDS: Cefuroxime PO 250 MG TABLET PO SCH (17:11)
[2018-10-21] MEDS ORDERED: D5% in Water 1,000 ML IVC PRN (18:04)
[2018-10-21] MEDS ORDERED: Dextrose Gel 15 GM/37.5 ML TUBE PO PRN ×2 (18:04)
[2018-10-21] MEDS ORDERED: *HR* Dextrose 50 % in Water (Syg) 50 ML SYRINGE IVP PRN (18:04)
[2018-10-21] MEDS: Apixaban 5 MG TABLET PO SCH (20:58)
[2018-10-21] MEDS: Insulin DETEMIR 100 UNIT/ML X5UNITS SQ SCH (20:59)
[2018-10-21] MEDS: Insulin LISPRO 300 UNITS/3 ML VIAL SQ SCH (21:00)
[2018-10-21] MEDS: Lactobacillus 1 EACH CAP.SPRINK PO SCH (21:57)
[2018-10-21] MEDS: Budesonide Neb 0.25 MG/2 ML IH SCH (23:10)
[2018-10-22] MEDS: Albuterol 2.5 MG/3 ML NEBULIZER IH SCH ×3 (05:13→11:19)
[2018-10-22] MEDS: Cefuroxime PO 250 MG TABLET PO SCH ×2 (06:15→17:25)
[2018-10-22] MEDS: Budesonide Neb 0.25 MG/2 ML IH SCH ×2 (08:51→21:09)
[2018-10-22] MEDS: Bumetanide 1 MG TABLET PO SCH (09:29)
[2018-10-22] MEDS: Isosorbide MONOnitrate (24 HR) 30 MG TAB.ER.24H PO SCH (09:30)
[2018-10-22] MEDS: Gabapentin 300 MG CAPSULE PO SCH ×3 (09:30→20:30)
[2018-10-22] MEDS: Lactobacillus 1 EACH CAP.SPRINK PO SCH ×2 (09:30→20:30)
[2018-10-22] MEDS: Aspirin Enteric Coated 81 MG Tablet PO SCH (09:30)
[2018-10-22] MEDS: Diltiazem CD (24hr) 120 MG CAPSULE PO SCH (09:31)
[2018-10-22] MEDS: Apixaban 5 MG TABLET PO SCH ×2 (09:31→20:30)
[2018-10-22] MEDS: *HR* Digoxin 0.125 MG TABLET PO SCH (09:32)
[2018-10-22] MEDS: Dapagliflozin Propanediol [Farxiga] 5 MG PO SCH (09:33)
[2018-10-22] MEDS: Insulin LISPRO 300 UNITS/3 ML VIAL SQ SCH ×4 (09:35→20:31)
[2018-10-22] MEDS: Insulin DETEMIR 100 UNIT/ML X5UNITS SQ SCH ×2 (09:36→20:30)
[2018-10-22] MEDS ORDERED: Dicyclomine 20 MG/2 ML AMPUL IM PRN (13:04)
--- NOTE | 2018-10-22 14:56 | Internal Med Progress Note ---
Date of Encounter: 10/22/18 Time of Encounter: 14:47 - Assessment and plan (1) CHF (congestive heart failure) Current Visit: No Status: Acute Assessment and plan: October 22. Continue Bumex, Imdur, metoprolol, Lanoxin. Check labs in a.m. Qualifiers: Heart failure type: diastolic Heart failure chronicity: acute on chronic Qualified Code(s): I50.33 - Acute on chronic diastolic (congestive) heart failure (2) Pneumonia Current Visit: No Status: Acute Assessment and plan: October 22. Continue antibiotics and probiotic through October 23. Qualifiers: Pneumonia type: due to unspecified organism Laterality: bilateral Lung location: unspecified part of lung Qualified Code(s): J18.9 - Pneumonia, unspecified organism (3) Anemia Current Visit: No Status: Acute Assessment and plan: October 22. Anemia testing 10/14/2018 showed iron 37, transferrin saturation 13%, transferrin 209, ferritin 145, and B12 969. Continue to monitor hemoglobin. Qualifiers: Anemia type: unspecified type Qualified Code(s): D64.9 - Anemia, unspecified (4) T2DM (type 2 diabetes mellitus) Current Visit: No Status: Chronic Assessment and plan: October 22. Hemoglobin A1c was 8.7% on 10/14/2018. Continue basal insulin and Accu-Cheks with SSI. Qualifiers: Diabetes mellitus terminal system operator insulin use: unspecified terminal system operator insulin use status Diabetes mellitus complication status: with kidney complications Diabetes mellitus complication detail: with chronic kidney disease Chronic kidney disease stage: stage 4 (severe) Qualified Code(s): E11.22 - Type 2 diabetes mellitus with diabetic chronic kidney disease; N18.4 - Chronic kidney disease, stage 4 (severe) (5) CKD (chronic kidney disease) stage 4, GFR 15-29 ml/min Current Visit: No Status: Chronic Assessment and plan: October 22. Monitor renal indices (6) Hypothyroidism Current Visit: No Status: Chronic Assessment and plan: October 22. Continue Synthroid 250 g daily. Qualifiers: Hypothyroidism type: unspecified Qualified Code(s): E03.9 - Hypothyroidism, unspecified (7) Atrial fibrillation Current Visit: No Status: Chronic Assessment and plan: October 22. Continue Cardizem, Lopressor, Eliquis, and Lanoxin. Qualifiers: Atrial fibrillation type: chronic Qualified Code(s): I48.2 - Chronic atrial fibrillation (8) Abdominal discomfort Current Visit: Yes Status: Acute Assessment and plan: October 22. Check labs in a.m. - Subjective Interval history: October 22. She was hospitalized in acute-care at [facility] October 17 after presenting with dyspnea felt to be due to CHF. Chest CT showed bilateral moderate pleural effusions without obvious infiltrate. She developed leukocytosis and had left shift on differential admission so antibiotics were given during acute care stay and continued for 2 additional days in swing bed. She was treated for heart failure. BN peptide decreased from 607 on October 19 to 385 on October 21. She complains of some ongoing nausea that has been present for 3-4 days with occasional vomiting. She also has some pain in her l eft abdominal area. She reports recent bowel movement. - Constitutional Vitals: Temp Pulse Resp BP Pulse Ox 98.3 F 78 16 120/60 95 10/22/18 06:00 10/22/18 06:00 10/22/18 08:52 10/22/18 06:00 10/22/18 08:52 Exam: She is resting comfortably in bed and appears in no severe distress. She does not appear dyspneic. No skin lesions are seen at the area of left abdominal pain. Her abdomen is nontender to palpation. I reviewed her medications and lab results. Consult Discharge Plan - Plan Referrals: NONE,PCP [Primary Care Provider] - 1 week
[2018-10-22] MEDS ORDERED: Albuterol 2.5 MG/3 ML NEBULIZER IH PRN (15:36)
[2018-10-22] MEDS: Azithromycin 250 MG TABLET PO SCH (15:50)
[2018-10-22] MEDS: *HR* OxyCODONE Immed Rel 5 MG TABLET PO PRN (20:30)
[2018-10-23] MEDS: Cefuroxime PO 250 MG TABLET PO SCH (05:48)
[2018-10-23] MEDS: Ascorbic Acid 500 MG TABLET PO SCH (05:48)
[2018-10-23] MEDS: *HR* OxyCODONE Immed Rel 5 MG TABLET PO PRN (05:51)
[2018-10-23 06:58] LABS: Basophils # 0.1 K/mcL (0.0-0.2); Basophils % 0.4 %; Eosinophils # 0.4 K/mcL (0.0-0.6); Eosinophils % 3.4 %; Hematocrit 37.1 % (35.3-44.9); Hemoglobin 11.2 g/dL (11.5-15.4); Immature Granulocytes % 0.4 % (0-4); Lymphocytes # 1.3 K/mcL (0.6-4.6); Lymphocytes % 11.1 %; Mean Corpuscular HGB Conc 30.2 g/dL (31.6-35.5); Mean Corpuscular Volume 89.4 fL (83.0-100.0); Mean Platelet Volume 9.9 fL (9.4-12.4); Monocytes # 0.8 K/mcL (0.0-1.3); Monocytes % 6.6 %; Neutrophils # 8.9 K/mcL (1.6-8.9); Platelet Count 292 K/mcL (140-400); Red Blood Count 4.15 M/mcL (3.82-4.97); Red Cell Distribution Width 14.6 % (11.5-14.5); Segmented Neutrophils % 78.1 %
[2018-10-23 07:31] LABS: Calcium 9.3 mg/dL (8.6-10.3); Digoxin 1.4 ng/mL (0.8-2.0); Potassium 4.3 mEq/L (3.5-5.1)
[2018-10-23] MEDS: Apixaban 5 MG TABLET PO SCH ×2 (08:06→19:52)
[2018-10-23] MEDS: Lactobacillus 1 EACH CAP.SPRINK PO SCH (08:06)
[2018-10-23] MEDS: *HR* Digoxin 0.125 MG TABLET PO SCH (08:06)
[2018-10-23] MEDS: Aspirin Enteric Coated 81 MG Tablet PO SCH (08:06)
[2018-10-23] MEDS: Isosorbide MONOnitrate (24 HR) 30 MG TAB.ER.24H PO SCH (08:06)
[2018-10-23] MEDS: Bumetanide 1 MG TABLET PO SCH (08:07)
[2018-10-23] MEDS: Diltiazem CD (24hr) 120 MG CAPSULE PO SCH (08:07)
[2018-10-23] MEDS: Gabapentin 300 MG CAPSULE PO SCH ×3 (08:07→19:52)
[2018-10-23] MEDS: Insulin LISPRO 300 UNITS/3 ML VIAL SQ SCH ×4 (08:08→19:53)
[2018-10-23] MEDS: Dapagliflozin Propanediol [Farxiga] 5 MG PO SCH (08:16)
[2018-10-23] MEDS: Insulin DETEMIR 100 UNIT/ML X5UNITS SQ SCH ×2 (09:26→19:52)
[2018-10-23] MEDS: Budesonide Neb 0.25 MG/2 ML IH SCH ×2 (10:29→22:25)
--- NOTE | 2018-10-23 12:17 | Internal Med Progress Note ---
Date of Encounter: 10/23/18 Time of Encounter: 12:07 - Assessment and plan (1) CHF (congestive heart failure) Current Visit: No Status: Acute Assessment and plan: October 22. Continue Bumex, Imdur, metoprolol, Lanoxin. Check labs in a.m. October 23. BN peptide further improved to 324. Continue present regimen except increase Imdur to 60 mg daily. Qualifiers: Heart failure type: diastolic Heart failure chronicity: acute on chronic Qualified Code(s): I50.33 - Acute on chronic diastolic (congestive) heart failure (2) Pneumonia Current Visit: No Status: Acute Assessment and plan: October 22. Continue antibiotics and probiotic through October 23. October 23. Discontinue antibiotics and probiotics. Qualifiers: Pneumonia type: due to unspecified organism Laterality: bilateral Lung location: unspecified part of lung Qualified Code(s): J18.9 - Pneumonia, unspecified organism (3) Anemia Current Visit: No Status: Acute Assessment and plan: October 22. Anemia testing 10/14/2018 showed iron 37, transferrin saturation 13%, transferrin 209, ferritin 145, and B12 969. Continue to monitor hemoglobin. October 23. Hemoglobin improved to 11.2. Continue to monitor. Qualifiers: Anemia type: unspecified type Qualified Code(s): D64.9 - Anemia, unspecified (4) T2DM (type 2 diabetes mellitus) Current Visit: No Status: Chronic Assessment and plan: October 22. Hemoglobin A1c was 8.7% on 10/14/2018. Continue basal insulin and Accu-Cheks with SSI. Qualifiers: Diabetes mellitus terminal worker insulin use: unspecified care home insulin use status Diabetes mellitus complication status: with kidney complications Diabetes mellitus complication detail: with chronic kidney disease Chronic kidney disease stage: stage 4 (severe) Qualified Code(s): E11.22 - Type 2 diabetes mellitus with diabetic chronic kidney disease; N18.4 - Chronic kidney disease, stage 4 (severe) (5) CKD (chronic kidney disease) stage 4, GFR 15-29 ml/min Current Visit: No Status: Chronic Assessment and plan: October 22. Monitor renal indices October 23. BUN and creatinine improved to 28 and 1.33 respectively with estimated GFR 39. Continue present regimen. (6) Hypothyroidism Current Visit: No Status: Chronic Assessment and plan: October 22. Continue Synthroid 250 g daily. Qualifiers: Hypothyroidism type: unspecified Qualified Code(s): E03.9 - Hypothyroidism, unspecified (7) Atrial fibrillation Current Visit: No Status: Chronic Assessment and plan: October 22. Continue Cardizem, Lopressor, Eliquis, and Lanoxin. October 23. Continue present regimen. Ventricular rate remains adequately controlled. Qualifiers: Atrial fibrillation type: chronic Qualified Code(s): I48.2 - Chronic atrial fibrillation (8) Abdominal discomfort Current Visit: Yes Status: Acute Assessment and plan: October 22. Check labs in a.m. October 23. Etiology not obvious. Will discontinue aspirin to avoid gastritis. Will check stool for H. pylori. (9) Postherpetic neuralgia Current Visit: Yes Status: Acute Assessment and plan: October 23. Continue Neurontin. Add low dose Elavil. - Subjective Interval history: October 22. She was hospitalized in acute-care at [facility] October 17 after presenting with dyspnea felt to be due to CHF. Chest CT showed bilateral moderate pleural effusions without obvious infiltrate. She developed nora kocytosis and had left shift on differential admission so antibiotics were given during acute care stay and continued for 2 additional days in swing bed. She was treated for heart failure. BN peptide decreased from 607 on October 19 to 385 on October 21. She complains of some ongoing nausea that has been present for 3-4 days with occasional vomiting. She also has some pain in her left abdominal area. She reports recent bowel movement. October 23. She has no new complaints. She still feels nausea and episode of vomiting earlier today. She still has a burning sensation in the dermatome where she had shingles in the past. - Constitutional Vitals: Temp Pulse Resp BP Pulse Ox 98.3 F 95 16 108/54 94 10/23/18 07:44 10/23/18 07:44 10/23/18 07:44 10/23/18 07:44 10/23/18 08:20 Exam: She is sitting in a chair at bedside eating lunch and appears in no acute distress. Her affect is bright and cheerful. I reviewed her medications and lab results. Internal Medicine: Result - Labs CBC & Chem 7: 10/23/18 06:50 10/23/18 06:50 Labs: Short CBC 10/23/18 Range/Units 06:50 WBC 11.4 H (4.3-11.1) K/mcL Hgb 11.2 L (11.5-15.4) g/dL Hct 37.1 (35.3-44.9) % Plt Count 292 (140-400) K/mcL Neutrophils # 8.9 (1.6-8.9) K/mcL BMP 10/23/18 06:50 Sodium 136 Potassium 4.3 Chloride 92 L Carbon Dioxide 40 H* BUN 28 H Creatinine 1.33 H Glucose 233 H Calcium 9.3 Consult Discharge Plan - Plan Referrals: NONE,PCP [Primary Care Provider] - 1 week
[2018-10-24] MEDS: *HR* OxyCODONE Immed Rel 5 MG TABLET PO PRN (04:46)
[2018-10-24] MEDS: Ascorbic Acid 500 MG TABLET PO SCH (06:49)
[2018-10-24] MEDS: Apixaban 5 MG TABLET PO SCH ×2 (09:15→20:22)
[2018-10-24] MEDS: *HR* Digoxin 0.125 MG TABLET PO SCH (09:15)
[2018-10-24] MEDS: Gabapentin 300 MG CAPSULE PO SCH ×3 (09:16→20:21)
[2018-10-24] MEDS: Bumetanide 1 MG TABLET PO SCH (09:17)
[2018-10-24] MEDS: Insulin LISPRO 300 UNITS/3 ML VIAL SQ SCH ×4 (09:17→20:22)
[2018-10-24] MEDS: Isosorbide MONOnitrate (24 HR) 60 MG TAB.ER.24H PO SCH (09:17)
[2018-10-24] MEDS: Diltiazem CD (24hr) 120 MG CAPSULE PO SCH (09:17)
[2018-10-24] MEDS: Insulin DETEMIR 100 UNIT/ML X5UNITS SQ SCH ×2 (09:17→20:22)
[2018-10-24] MEDS: Dapagliflozin Propanediol [Farxiga] 5 MG PO SCH (09:18)
[2018-10-24] MEDS: Budesonide Neb 0.25 MG/2 ML IH SCH ×2 (10:45→22:37)
--- NOTE | 2018-10-24 10:53 | Internal Med Progress Note ---
Date of Encounter: 10/24/18 Time of Encounter: 10:45 - Assessment and plan (1) CHF (congestive heart failure) Current Visit: No Status: Acute Assessment and plan: October 22. Continue Bumex, Imdur, metoprolol, Lanoxin. Check labs in a.m. October 23. BN peptide further improved to 324. Continue present regimen except increase Imdur to 60 mg daily. Qualifiers: Heart failure type: diastolic Heart failure chronicity: acute on chronic Qualified Code(s): I50.33 - Acute on chronic diastolic (congestive) heart failure (2) Pneumonia Current Visit: No Status: Acute Assessment and plan: October 22. Continue antibiotics and probiotic through October 23. October 23. Discontinue antibiotics and probiotics. Qualifiers: Pneumonia type: due to unspecified organism Laterality: bilateral Lung location: unspecified part of lung Qualified Code(s): J18.9 - Pneumonia, unspecified organism (3) Anemia Current Visit: No Status: Acute Assessment and plan: October 22. Anemia testing 10/14/2018 showed iron 37, transferrin saturation 13%, transferrin 209, ferritin 145, and B12 969. Continue to monitor hemoglobin. October 23. Hemoglobin improved to 11.2. Continue to monitor. Qualifiers: Anemia type: unspecified type Qualified Code(s): D64.9 - Anemia, unspecified (4) T2DM (type 2 diabetes mellitus) Current Visit: No Status: Chronic Assessment and plan: October 22. Hemoglobin A1c was 8.7% on 10/14/2018. Continue basal insulin and Accu-Cheks with SSI. October 24. Blood sugars slightly above desirable range. Increase Levemir to 12 units twice a day. Qualifiers: Diabetes mellitus prison insulin use: unspecified intermediate manager insulin use status Diabetes mellitus complication status: with kidney complications Diabetes mellitus complication detail: with chronic kidney disease Chronic kidney disease stage: stage 4 (severe) Qualified Code(s): E11.22 - Type 2 diabetes mellitus with diabetic chronic kidney disease; N18.4 - Chronic kidney disease, stage 4 (severe) (5) CKD (chronic kidney disease) stage 4, GFR 15-29 ml/min Current Visit: No Status: Chronic Assessment and plan: October 22. Monitor renal indices October 23. BUN and creatinine improved to 28 and 1.33 respectively with estimated GFR 39. Continue present regimen. (6) Hypothyroidism Current Visit: No Status: Chronic Assessment and plan: October 22. Continue Synthroid 250 g daily. Qualifiers: Hypothyroidism type: unspecified Qualified Code(s): E03.9 - Hypothyroidism, unspecified (7) Atrial fibrillation Current Visit: No Status: Chronic Assessment and plan: October 22. Continue Cardizem, Lopressor, Eliquis, and Lanoxin. October 23. Continue present regimen. Ventricular rate remains adequately controlled. Qualifiers: Atrial fibrillation type: chronic Qualified Code(s): I48.2 - Chronic atrial fibrillation (8) Abdominal discomfort Current Visit: Yes Status: Acute Assessment and plan: October 22. Check labs in a.m. October 23. Etiology not obvious. Will discontinue aspirin to avoid gastritis. Will check stool for H. pylori. October 24. Unchanged. Remain off aspirin. No BM yet to test for H. pylori. (9) Postherpetic neuralgia Current Visit: Yes Status: Acute Assessment and plan: October 23. Continue Neurontin. Add low dose Elavil. October 24. Continue Neurontin and Elavil. - Subjective Interval history: October 22. She was hospitalized in acute-care at [facility] October 17 after presenting with dyspnea felt to be due to CHF. Chest CT showed bilateral moderate pleural effusions without obvious infiltrate. She developed leukocytosis and had left shift on differential admission so antibiotics were given during acute care stay and continued for 2 additional days in swing bed. She was treated for heart failure. BN peptide decreased from 607 on October 19 to 385 on October 21. She complains of some ongoing nausea that has been present for 3-4 days with occasional vomiting. She also has some pain in her left abdominal area. She reports recent bowel movement. October 23. She has no new complaints. She still feels nausea and episode of vomiting earlier today. She still has a burning sensation in the dermatome where she had shingles in the past. October 24. She has no new complaints. She still feels nauseated. - Constitutional Vitals: Temp Pulse Resp BP Pulse Ox 98.2 F 115 17 130/71 97 10/24/18 07:27 10/24/18 07:27 10/24/18 07:27 10/24/18 07:27 10/24/18 07:27 Exam: She is resting in bed and appears in no significant distress. Her affect is overall cheerful. I reviewed her medications and lab results. Internal Medicine: Result - Labs CBC & Chem 7: 10/23/18 06:50 10/23/18 06:50 Consult Discharge Plan - Plan Referrals: NONE,PCP [Primary Care Provider] - 1 week
[2018-10-25] MEDS: Ascorbic Acid 500 MG TABLET PO SCH (06:21)
[2018-10-25] MEDS: *HR* Digoxin 0.125 MG TABLET PO SCH (08:18)
[2018-10-25] MEDS: Bumetanide 1 MG TABLET PO SCH (08:18)
[2018-10-25] MEDS: Gabapentin 300 MG CAPSULE PO SCH ×3 (08:18→21:04)
[2018-10-25] MEDS: Insulin DETEMIR 100 UNIT/ML X5UNITS SQ SCH ×2 (08:18→21:04)
[2018-10-25] MEDS: Isosorbide MONOnitrate (24 HR) 60 MG TAB.ER.24H PO SCH (08:18)
[2018-10-25] MEDS: *HR* OxyCODONE Immed Rel 5 MG TABLET PO PRN ×3 (08:18→23:00)
[2018-10-25] MEDS: Diltiazem CD (24hr) 120 MG CAPSULE PO SCH (08:18)
[2018-10-25] MEDS: Apixaban 5 MG TABLET PO SCH ×2 (08:18→21:04)
[2018-10-25] MEDS: Insulin LISPRO 300 UNITS/3 ML VIAL SQ SCH ×4 (08:21→21:05)
[2018-10-25] MEDS: Budesonide Neb 0.25 MG/2 ML IH SCH ×2 (09:34→22:57)
[2018-10-25] MEDS: Dapagliflozin Propanediol [Farxiga] 5 MG PO SCH (12:11)
[2018-10-26 06:21] LABS: Basophils # 0.1 K/mcL (0.0-0.2); Eosinophils # 0.4 K/mcL (0.0-0.6); Hematocrit 31.5 % (35.3-44.9); Hemoglobin 9.7 g/dL (11.5-15.4); Immature Granulocytes % 0.4 % (0-4); Lymphocytes # 1.5 K/mcL (0.6-4.6); Lymphocytes % 20.3 %; Mean Corpuscular HGB Conc 30.8 g/dL (31.6-35.5); Mean Corpuscular Hemoglobin 27.6 pg (28.0-33.3); Mean Corpuscular Volume 89.5 fL (83.0-100.0); Mean Platelet Volume 10.8 fL (9.4-12.4); Monocytes # 0.6 K/mcL (0.0-1.3); Monocytes % 8.3 %; Neutrophils # 4.6 K/mcL (1.6-8.9); Platelet Count 242 K/mcL (140-400); Red Blood Count 3.52 M/mcL (3.82-4.97); Red Cell Distribution Width 14.5 % (11.5-14.5)
[2018-10-26 06:45] LABS: Calcium 9.1 mg/dL (8.6-10.3); Potassium 4.3 mEq/L (3.5-5.1)
[2018-10-26] MEDS: Insulin LISPRO 300 UNITS/3 ML VIAL SQ SCH ×4 (08:09→20:07)
[2018-10-26] MEDS: *HR* Digoxin 0.125 MG TABLET PO SCH (08:10)
[2018-10-26] MEDS: Gabapentin 300 MG CAPSULE PO SCH ×3 (08:10→19:59)
[2018-10-26] MEDS: *HR* OxyCODONE Immed Rel 5 MG TABLET PO PRN ×2 (08:10→16:44)
[2018-10-26] MEDS: Bumetanide 1 MG TABLET PO SCH (08:10)
[2018-10-26] MEDS: Insulin DETEMIR 100 UNIT/ML X5UNITS SQ SCH ×2 (08:10→19:59)
[2018-10-26] MEDS: Apixaban 5 MG TABLET PO SCH ×2 (08:10→20:00)
[2018-10-26] MEDS: Isosorbide MONOnitrate (24 HR) 60 MG TAB.ER.24H PO SCH (08:10)
[2018-10-26] MEDS: Diltiazem CD (24hr) 120 MG CAPSULE PO SCH (08:11)
[2018-10-26] MEDS: Budesonide Neb 0.25 MG/2 ML IH SCH ×2 (09:37→23:22)
[2018-10-26] MEDS: Dapagliflozin Propanediol [Farxiga] 5 MG PO SCH (10:35)
--- NOTE | 2018-10-26 11:09 | Internal Med Progress Note ---
Date of Encounter: 10/26/18 Time of Encounter: 11:00 - Assessment and plan (1) CHF (congestive heart failure) Current Visit: No Status: Acute Assessment and plan: October 22. Continue Bumex, Imdur, metoprolol, Lanoxin. Check labs in a.m. October 23. BN peptide further improved to 324. Continue present regimen except increase Imdur to 60 mg daily. October 26. BN peptide further improved to 280. Continue present regimen. Qualifiers: Heart failure type: diastolic Heart failure chronicity: acute on chronic Qualified Code(s): I50.33 - Acute on chronic diastolic (congestive) heart failure (2) Pneumonia Current Visit: No Status: Acute Assessment and plan: October 22. Continue antibiotics and probiotic through October 23. October 23. Discontinue antibiotics and probiotics. Qualifiers: Pneumonia type: due to unspecified organism Laterality: bilateral Lung location: unspecified part of lung Qualified Code(s): J18.9 - Pneumonia, unspecified organism (3) Anemia Current Visit: No Status: Acute Assessment and plan: October 22. Anemia testing 10/14/2018 showed iron 37, transferrin saturation 13%, transferrin 209, ferritin 145, and B12 969. Continue to monitor hemoglobin. October 23. Hemoglobin improved to 11.2. Continue to monitor. October 26. Hemoglobin has decreased to 9.7. Continue to monitor. Qualifiers: Anemia type: unspecified type Qualified Code(s): D64.9 - Anemia, unspecified (4) T2DM (type 2 diabetes mellitus) Current Visit: No Status: Chronic Assessment and plan: October 22. Hemoglobin A1c was 8.7% on 10/14/2018. Continue basal insulin and Accu-Cheks with SSI. October 24. Blood sugars slightly above desirable range. Increase Levemir to 12 units twice a day. Qualifiers: Diabetes mellitus shelter insulin use: unspecified shelter insulin use status Diabetes mellitus complication status: with kidney complications Diabetes mellitus complication detail: with chronic kidney disease Chronic kidney disease stage: stage 4 (severe) Qualified Code(s): E11.22 - Type 2 diabetes mellitus with diabetic chronic kidney disease; N18.4 - Chronic kidney disease, stage 4 (severe) (5) CKD (chronic kidney disease) stage 4, GFR 15-29 ml/min Current Visit: No Status: Chronic Assessment and plan: October 22. Monitor renal indices October 23. BUN and creatinine improved to 28 and 1.33 respectively with estimated GFR 39. Continue present regimen. October 26. BUN and creatinine have risen to 46 and 1.77 respectively with estimated GFR 28. Continue to monitor. (6) Hypothyroidism Current Visit: No Status: Chronic Assessment and plan: October 22. Continue Synthroid 250 g daily. Qualifiers: Hypothyroidism type: unspecified Qualified Code(s): E03.9 - Hypothyroidism, unspecified (7) Atrial fibrillation Current Visit: No Status: Chronic Assessment and plan: October 22. Continue Cardizem, Lopressor, Eliquis, and Lanoxin. October 23. Continue present regimen. Ventricular rate remains adequately controlled. Qualifiers: Atrial fibrillation type: chronic Qualified Code(s): I48.2 - Chronic atrial fibrillation (8) Abdominal discomfort Current Visit: Yes Status: Acute Assessment and plan: October 22. Check labs in a.m. October 23. Etiology not obvious. Will discontinue aspirin to avoid gastritis. Will check stool for H. pylori. October 24. Unchanged. Remain off aspirin. No BM yet to test for H. pylori. October 26. Slightly improved. Remain off aspirin. H. pylori testing not yet done. (9) Postherpetic neuralgia Current Visit: Yes Status: Acute Assessment and plan: October 23. Continue Neurontin. Add low dose Elavil. October 24. Continue Neurontin and Elavil. October 26. Continue Neurontin. Increase Elavil to 50 mg at bedtime. - Subjective Interval history: October 22. She was hospitalized in acute-care at [facility] October 17 after presenting with dyspnea felt to be due to CHF. Chest CT showed bilateral moderate pleural effusions without obvious infiltrate. She developed leukocytosis and had left shift on differential admission so antibiotics were given during acute care stay and continued for 2 additional days in swing bed. She was treated for heart failure. BN peptide decreased from 607 on October 19 to 385 on October 21. She complains of some ongoing nausea that has been present for 3-4 days with occasional vomiting. She also has some pain in her left abdominal area. She reports recent bowel movement. October 23. She has no new complaints. She still feels nausea and episode of vomiting earlier today. She still has a burning sensation in the dermatome where she had shingles in the past. October 24. She has no new complaints. She still feels nauseated. October 26. She feels her nausea has slightly lessened. Left thoracic dermatome burning sensation has lessened. She has some discomfort in her left flank and is concerned she may have a UTI. - Constitutional Vitals: Temp Pulse Resp BP Pulse Ox 98.4 F 93 16 123/70 97 10/25/18 18:49 10/25/18 18:49 10/26/18 09:39 10/25/18 18:49 10/26/18 09:39 Exam: She is sitting in a chair at bedside resting comfortably. Her affect is cheerful. Extremities show no pitting edema. I reviewed her medications and lab results. Internal Medicine: Result - Labs CBC & Chem 7: 10/26/18 05:43 10/26/18 05:43 Labs: Short CBC 10/26/18 Range/Units 05:43 WBC 7.1 (4.3-11.1) K/mcL Hgb 9.7 L D (11.5-15.4) g/dL Hct 31.5 L (35.3-44.9) % Plt Count 242 (140-400) K/mcL Neutrophils # 4.6 (1.6-8.9) K/mcL BMP 10/26/18 05:43 Sodium 136 Potassium 4.3 Chloride 93 L Carbon Dioxide 39 H BUN 46 H Creatinine 1.77 H Glucose 185 H Calcium 9.1 Consult Discharge Plan - Plan Referrals: NONE,PCP [Primary Care Provider] - 1 week
[2018-10-26 17:23] LABS: Bilirubin,Urine Negative (Negative); Blood,Urine Trace-intact (Negative); Clarity,Urine Cloudy (Clear); Color,Urine Yellow (Yellow); Glucose,Urine (UA) Normal (Normal); Ketones,Urine Negative (Negative); Leukocyte Esterase,Urine Large (Negative); Nitrite,Urine Positive (Negative); PH,Urine 5.5 pH Units (5.0-8.0); Protein,Urine Negative (Neg-Trace); Specific Gravity,Urine 1.015 (1.010-1.025); Urobilinogen,Urine Normal (Normal)
[2018-10-26 17:47] LABS: Bacteria,Urine Many per hpf (None-Few); RBC,Urine 0-3 per hpf (0-3); Squamous Epithelial Cell,Urine Few per lpf (None-Few); WBC,Urine TNTC per hpf (0-3)
[2018-10-26] MEDS: Piperacillin/Tazobactam 3.375 GM in 0.9 % Sodium Chloride Mini Bag 100 ML IVP SCH (19:57)
[2018-10-26] MEDS: Lactobacillus 1 EACH CAP.SPRINK PO SCH (20:00)
[2018-10-27] MEDS: Piperacillin/Tazobactam 3.375 GM in 0.9 % Sodium Chloride Mini Bag 100 ML IVP SCH ×3 (04:09→22:10)
[2018-10-27] MEDS: Ascorbic Acid 500 MG TABLET PO SCH (06:32)
[2018-10-27] MEDS: Isosorbide MONOnitrate (24 HR) 60 MG TAB.ER.24H PO SCH (08:35)
[2018-10-27] MEDS: Lactobacillus 1 EACH CAP.SPRINK PO SCH ×2 (08:35→22:09)
[2018-10-27] MEDS: Gabapentin 300 MG CAPSULE PO SCH ×3 (08:35→22:09)
[2018-10-27] MEDS: Diltiazem CD (24hr) 120 MG CAPSULE PO SCH (08:35)
[2018-10-27] MEDS: Bumetanide 1 MG TABLET PO SCH (08:36)
[2018-10-27] MEDS: *HR* OxyCODONE Immed Rel 5 MG TABLET PO PRN ×2 (08:36→17:36)
[2018-10-27] MEDS: Apixaban 5 MG TABLET PO SCH ×2 (08:36→22:09)
[2018-10-27] MEDS: *HR* Digoxin 0.125 MG TABLET PO SCH (08:36)
[2018-10-27] MEDS: Insulin LISPRO 300 UNITS/3 ML VIAL SQ SCH ×4 (08:37→17:48)
[2018-10-27] MEDS: Insulin DETEMIR 100 UNIT/ML X5UNITS SQ SCH ×2 (09:13→22:10)
[2018-10-27] MEDS: Budesonide Neb 0.25 MG/2 ML IH SCH ×2 (11:20→21:48)
[2018-10-27] MEDS: Dapagliflozin Propanediol [Farxiga] 5 MG PO SCH (13:16)
[2018-10-28] MEDS: Piperacillin/Tazobactam 3.375 GM in 0.9 % Sodium Chloride Mini Bag 100 ML IVP SCH ×3 (05:23→18:09)
[2018-10-28] MEDS: Ascorbic Acid 500 MG TABLET PO SCH (07:24)
[2018-10-28] MEDS: Budesonide Neb 0.25 MG/2 ML IH SCH ×2 (10:21→21:31)
[2018-10-28] MEDS: Insulin DETEMIR 100 UNIT/ML X5UNITS SQ SCH ×2 (10:56→22:04)
[2018-10-28] MEDS: Gabapentin 300 MG CAPSULE PO SCH ×3 (10:57→21:56)
[2018-10-28] MEDS: Isosorbide MONOnitrate (24 HR) 60 MG TAB.ER.24H PO SCH (10:57)
[2018-10-28] MEDS: Diltiazem CD (24hr) 120 MG CAPSULE PO SCH (10:57)
[2018-10-28] MEDS: Bumetanide 1 MG TABLET PO SCH (10:57)
[2018-10-28] MEDS: *HR* OxyCODONE Immed Rel 5 MG TABLET PO PRN (10:57)
[2018-10-28] MEDS: *HR* Digoxin 0.125 MG TABLET PO SCH (10:57)
[2018-10-28] MEDS: Lactobacillus 1 EACH CAP.SPRINK PO SCH ×2 (10:57→21:56)
[2018-10-28] MEDS: Apixaban 5 MG TABLET PO SCH ×2 (10:57→21:55)
[2018-10-28] MEDS: Insulin LISPRO 300 UNITS/3 ML VIAL SQ SCH ×4 (10:58→22:04)
[2018-10-28] MEDS: Dapagliflozin Propanediol [Farxiga] 5 MG PO SCH (10:59)
--- NOTE | 2018-10-28 14:52 | Internal Med Progress Note ---
Date of Encounter: 10/28/18 Time of Encounter: 14:45 - Assessment and plan (1) CHF (congestive heart failure) Current Visit: No Status: Acute Assessment and plan: October 22. Continue Bumex, Imdur, metoprolol, Lanoxin. Check labs in a.m. October 23. BN peptide further improved to 324. Continue present regimen except increase Imdur to 60 mg daily. October 26. BN peptide further improved to 280. Continue present regimen. October 28. Recheck labs in a.m. Qualifiers: Heart failure type: diastolic Heart failure chronicity: acute on chronic Qualified Code(s): I50.33 - Acute on chronic diastolic (congestive) heart failure (2) Pneumonia Current Visit: No Status: Acute Assessment and plan: October 22. Continue antibiotics and probiotic through October 23. October 23. Discontinue antibiotics and probiotics. Qualifiers: Pneumonia type: due to unspecified organism Laterality: bilateral Lung location: unspecified part of lung Qualified Code(s): J18.9 - Pneumonia, unspecified organism (3) Anemia Current Visit: No Status: Acute Assessment and plan: October 22. Anemia testing 10/14/2018 showed iron 37, transferrin saturation 13%, transferrin 209, ferritin 145, and B12 969. Continue to monitor hemoglobin. October 23. Hemoglobin improved to 11.2. Continue to monitor. October 26. Hemoglobin has decreased to 9.7. Continue to monitor. October 28. Recheck labs in a.m. Qualifiers: Anemia type: unspecified type Qualified Code(s): D64.9 - Anemia, unspecified (4) T2DM (type 2 diabetes mellitus) Current Visit: No Status: Chronic Assessment and plan: October 22. Hemoglobin A1c was 8.7% on 10/14/2018. Continue basal insulin and Accu-Cheks with SSI. October 24. Blood sugars slightly above desirable range. Increase Levemir to 12 units twice a day. October 28. Blood sugars remain slightly above desirable range. Increase Levemir further to 15 units twice a day. Qualifiers: Diabetes mellitus mcc insulin use: unspecified mcc insulin use status Diabetes mellitus complication status: with kidney complications Diabetes mellitus complication detail: with chronic kidney disease Chronic kidney disease stage: stage 4 (severe) Qualified Code(s): E11.22 - Type 2 diabetes mellitus with diabetic chronic kidney disease; N18.4 - Chronic kidney disease, stage 4 (severe) (5) CKD (chronic kidney disease) stage 4, GFR 15-29 ml/min Current Visit: No Status: Chronic Assessment and plan: October 22. Monitor renal indices October 23. BUN and creatinine improved to 28 and 1.33 respectively with estimated GFR 39. Continue present regimen. October 26. BUN and creatinine have risen to 46 and 1.77 respectively with estimated GFR 28. Continue to monitor. October 28. Recheck labs in a.m. (6) Hypothyroidism Current Visit: No Status: Chronic Assessment and plan: October 22. Continue Synthroid 250 g daily. Qualifiers: Hypothyroidism type: unspecified Qualified Code(s): E03.9 - Hypothyroidism, unspecified (7) Atrial fibrillation Current Visit: No Status: Chronic Assessment and plan: October 22. Continue Cardizem, Lopressor, Eliquis, and Lanoxin. October 23. Continue present regimen. Ventricular rate remains adequately controlled. Qualifiers: Atrial fibrillation type: chronic Qualified Code(s): I48.2 - Chronic atrial fibrillation (8) Abdominal discomfort Current Visit: Yes Status: Acute Assessment and plan: October 22. Check labs in a.m. October 23. Etiology not obvious. Will discontinue aspirin to avoid gastritis. Will check stool for H. pylori. October 24. Unchanged. Remain off aspirin. No BM yet to test for H. pylori. October 26. Slightly improved. Remain off aspirin. H. pylori testing not yet done. October 28. Stool for H. pylori testing pending. (9) Postherpetic neuralgia Current Visit: Yes Status: Acute Assessment and plan: October 23. Continue Neurontin. Add low dose Elavil. October 24. Continue Neurontin and Elavil. October 26. Continue Neurontin. Increase Elavil to 50 mg at bedtime. (10) UTI (urinary tract infection) Current Visit: No Status: Acute Assessment and plan: October 28. She was placed empirically on Zosyn with lactobacillus. Urine culture from 10/26/2018 pending. The culture from 10/19/2018 showed ESBL Escherichia coli. Qualifiers: Urinary tract infection type: site unspecified Hematuria presence: without hematuria Qualified Code(s): N39.0 - Urinary tract infection, site not specified - Subjective Interval history: October 22. She was hospitalized in acute-care at [facility] October 17 after presenting with dyspnea felt to be due to CHF. Chest CT showed bilateral moderate pleural effusions without obvious infiltrate. She developed leukocytosis and had left shift on differential admission so antibiotics were given during acute care stay and continued for 2 additional days in swing bed. She was treated for heart failure. BN peptide decreased from 607 on October 19 to 385 on October 21. She complains of some ongoing nausea that has been present for 3-4 days with occasional vomiting. She also has some pain in her left abdominal area. She reports recent bowel movement. October 23. She has no new complaints. She still feels nausea and episode of vomiting earlier today. She still has a burning sensation in the dermatome where she had shingles in the past. October 24. She has no new complaints. She still feels nauseated. October 26. She feels her nausea has slightly lessened. Left thoracic dermatome burning sensation has lessened. She has some discomfort in her left flank and is concerned she may have a UTI. October 28. She had an episode of nausea with vomiting earlier today. She reports left thoracic dermatome burning has lessened further. - Constitutional Vitals: Temp Pulse Resp BP Pulse Ox 98.2 F 70 18 130/68 97 10/28/18 06:57 10/28/18 06:57 10/28/18 06:57 10/28/18 06:57 10/28/18 06:57 Exam: She is resting comfortably in bed and appears in no acute distress. Her affect is bright and cheerful. I reviewed her medications and lab results. Internal Medicine: Result - Labs CBC & Chem 7: 10/26/18 05:43 10/26/18 05:43 Consult Discharge Plan - Plan Referrals: NONE,PCP [Primary Care Provider] - 1 week
[2018-10-29] MEDS: Piperacillin/Tazobactam 3.375 GM in 0.9 % Sodium Chloride Mini Bag 100 ML IVP SCH ×3 (03:49→17:22)
[2018-10-29 05:51] LABS: Basophils # 0.1 K/mcL (0.0-0.2); Basophils % 0.7 %; Eosinophils # 0.4 K/mcL (0.0-0.6); Eosinophils % 6.1 %; Hematocrit 29.2 % (35.3-44.9); Immature Granulocytes % 0.4 % (0-4); Lymphocytes # 1.4 K/mcL (0.6-4.6); Lymphocytes % 19.2 %; Mean Corpuscular HGB Conc 30.8 g/dL (31.6-35.5); Mean Corpuscular Hemoglobin 27.6 pg (28.0-33.3); Mean Corpuscular Volume 89.6 fL (83.0-100.0); Mean Platelet Volume 10.9 fL (9.4-12.4); Monocytes # 0.5 K/mcL (0.0-1.3); Monocytes % 6.8 %; Neutrophils # 4.8 K/mcL (1.6-8.9); Platelet Count 233 K/mcL (140-400); Red Blood Count 3.26 M/mcL (3.82-4.97); Red Cell Distribution Width 14.2 % (11.5-14.5); Segmented Neutrophils % 66.8 %
[2018-10-29 06:13] LABS: Calcium 8.7 mg/dL (8.6-10.3); Potassium 4.2 mEq/L (3.5-5.1)
[2018-10-29] MEDS: Ascorbic Acid 500 MG TABLET PO SCH (06:23)
[2018-10-29] MEDS: Lactobacillus 1 EACH CAP.SPRINK PO SCH ×2 (08:12→21:23)
[2018-10-29] MEDS: Insulin LISPRO 300 UNITS/3 ML VIAL SQ SCH ×4 (08:12→21:19)
[2018-10-29] MEDS: Isosorbide MONOnitrate (24 HR) 60 MG TAB.ER.24H PO SCH (08:12)
[2018-10-29] MEDS: Diltiazem CD (24hr) 120 MG CAPSULE PO SCH (08:12)
[2018-10-29] MEDS: traMADol 50 MG TABLET PO PRN (08:13)
[2018-10-29] MEDS: Bumetanide 1 MG TABLET PO SCH (08:13)
[2018-10-29] MEDS: *HR* Digoxin 0.125 MG TABLET PO SCH (08:15)
[2018-10-29] MEDS: Apixaban 5 MG TABLET PO SCH ×2 (08:15→21:24)
[2018-10-29] MEDS: Gabapentin 300 MG CAPSULE PO SCH ×3 (08:15→21:23)
[2018-10-29] MEDS: Insulin DETEMIR 100 UNIT/ML X5UNITS SQ SCH ×2 (08:15→21:18)
[2018-10-29] MEDS: Dapagliflozin Propanediol [Farxiga] 5 MG PO SCH (08:16)
[2018-10-29] MEDS: Budesonide Neb 0.25 MG/2 ML IH SCH ×2 (10:07→23:04)
[2018-10-29] MEDS: *HR* OxyCODONE Immed Rel 5 MG TABLET PO PRN (17:20)
[2018-10-30] MEDS: Piperacillin/Tazobactam 3.375 GM in 0.9 % Sodium Chloride Mini Bag 100 ML IVP SCH ×3 (03:34→21:12)
[2018-10-30] MEDS: Ascorbic Acid 500 MG TABLET PO SCH (06:29)
[2018-10-30] MEDS: *HR* OxyCODONE Immed Rel 5 MG TABLET PO PRN ×2 (06:36→16:22)
[2018-10-30] MEDS: Insulin DETEMIR 100 UNIT/ML X5UNITS SQ SCH ×2 (08:01→21:09)
[2018-10-30] MEDS: Diltiazem CD (24hr) 120 MG CAPSULE PO SCH (08:01)
[2018-10-30] MEDS: Lactobacillus 1 EACH CAP.SPRINK PO SCH ×2 (08:01→21:09)
[2018-10-30] MEDS: *HR* Digoxin 0.125 MG TABLET PO SCH (08:01)
[2018-10-30] MEDS: Isosorbide MONOnitrate (24 HR) 60 MG TAB.ER.24H PO SCH (08:01)
[2018-10-30] MEDS: Bumetanide 1 MG TABLET PO SCH (08:01)
[2018-10-30] MEDS: Apixaban 5 MG TABLET PO SCH ×2 (08:01→21:10)
[2018-10-30] MEDS: Gabapentin 300 MG CAPSULE PO SCH ×3 (08:01→21:10)
[2018-10-30] MEDS: Insulin LISPRO 300 UNITS/3 ML VIAL SQ SCH ×4 (08:02→21:10)
[2018-10-30] MEDS: Dapagliflozin Propanediol [Farxiga] 5 MG PO SCH (08:03)
[2018-10-30] MEDS: Budesonide Neb 0.25 MG/2 ML IH SCH ×2 (09:19→22:12)
[2018-10-31] MEDS: *HR* OxyCODONE Immed Rel 5 MG TABLET PO PRN (02:15)
[2018-10-31] MEDS: Ascorbic Acid 500 MG TABLET PO SCH (05:42)
[2018-10-31] MEDS: Piperacillin/Tazobactam 3.375 GM in 0.9 % Sodium Chloride Mini Bag 100 ML IVP SCH (05:43)
[2018-10-31 06:01] LABS: Basophils # 0.1 K/mcL (0.0-0.2); Basophils % 0.7 %; Eosinophils # 0.4 K/mcL (0.0-0.6); Eosinophils % 5.3 %; Hematocrit 32.7 % (35.3-44.9); Hemoglobin 10.1 g/dL (11.5-15.4); Immature Granulocytes % 0.4 % (0-4); Lymphocytes # 1.8 K/mcL (0.6-4.6); Lymphocytes % 21.5 %; Mean Corpuscular HGB Conc 30.9 g/dL (31.6-35.5); Mean Corpuscular Hemoglobin 28.1 pg (28.0-33.3); Mean Corpuscular Volume 91.1 fL (83.0-100.0); Mean Platelet Volume 10.5 fL (9.4-12.4); Monocytes # 0.5 K/mcL (0.0-1.3); Monocytes % 5.7 %; Neutrophils # 5.6 K/mcL (1.6-8.9); Platelet Count 255 K/mcL (140-400); Red Blood Count 3.59 M/mcL (3.82-4.97); Red Cell Distribution Width 14.5 % (11.5-14.5); Segmented Neutrophils % 66.4 %
[2018-10-31 06:25] LABS: Calcium 8.9 mg/dL (8.6-10.3); Potassium 4.4 mEq/L (3.5-5.1)
[2018-10-31 06:43] VITALS: BP 104/47
[2018-10-31] MEDS: traMADol 50 MG TABLET PO PRN (07:57)
[2018-10-31] MEDS: Lactobacillus 1 EACH CAP.SPRINK PO SCH (07:57)
[2018-10-31] MEDS: Isosorbide MONOnitrate (24 HR) 60 MG TAB.ER.24H PO SCH (07:57)
[2018-10-31] MEDS: *HR* Digoxin 0.125 MG TABLET PO SCH (07:57)
[2018-10-31] MEDS: Apixaban 5 MG TABLET PO SCH (07:57)
[2018-10-31] MEDS: Diltiazem CD (24hr) 120 MG CAPSULE PO SCH (07:57)
[2018-10-31] MEDS: Bumetanide 1 MG TABLET PO SCH (07:57)
[2018-10-31] MEDS: Gabapentin 300 MG CAPSULE PO SCH (07:57)
[2018-10-31] MEDS: Dapagliflozin Propanediol [Farxiga] 5 MG PO SCH (07:58)
[2018-10-31] MEDS: Insulin LISPRO 300 UNITS/3 ML VIAL SQ SCH ×2 (07:58→11:58)
[2018-10-31] MEDS: Budesonide Neb 0.25 MG/2 ML IH SCH (09:10)
--- NOTE | 2018-10-31 10:05 | Discharge Summary ---
Date of Encounter: 10/31/18 Time of Encounter: 09:50 - Discharge Diagnosis (1) CHF (congestive heart failure) Priority: Primary Status: Acute Qualifiers: Heart failure type: diastolic Heart failure chronicity: acute on chronic Qualified Code(s): I50.33 - Acute on chronic diastolic (congestive) heart failure (2) Pneumonia Priority: Secondary Status: Acute Qualifiers: Pneumonia type: due to unspecified organism Laterality: bilateral Lung location: unspecified part of lung Qualified Code(s): J18.9 - Pneumonia, unspecified organism (3) Anemia Priority: Secondary Status: Acute Qualifiers: Anemia type: unspecified type Qualified Code(s): D64.9 - Anemia, uns pecified (4) T2DM (type 2 diabetes mellitus) Priority: Secondary Status: Chronic Qualifiers: Diabetes mellitus skilled nursing 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 Diabetes mellitus complication status: with kidney complications Diabetes mellitus complication detail: with chronic kidney disease Chronic kidney disease stage: stage 4 (severe) Qualified Code(s): E11.22 - Type 2 d iabetes mellitus with diabetic chronic kidney disease; N18.4 - Chronic kidney disease, stage 4 (severe) (5) CKD (chronic kidney disease) stage 4, GFR 15-29 ml/min Priority: Secondary Status: Chronic (6) Hypothyroidism Priority: Secondary Status: Chronic Qualifiers: Hypothyroidism type: unspecified Qualified Code(s): E03.9 - Hypothyroidism, unspecified (7) Atrial fibrillation Priority: Secondary Status: Chronic Qualifiers: Atrial fibrillation type: chronic Qualified Code(s): I48.2 - Chronic atrial fibrillation (8) Abdominal discomfort Priority: Secondary Status: Acute (9) Postherpetic neuralgia Priority: Secondary Status: Chronic (10) UTI (urinary tract infection) Priority: Secondary Status: Acute Qualifiers: Urinary tract infection type: site unspecified Hematuria presence: without hematuria Qualified Code(s): N39.0 - Urinary tract infection, site not specified Hospital course: Ms. Fink is a 73 year old female who was hospitalized in acute-care at [facility] October 17 after presenting with dyspnea felt to be due to CHF. Chest CT showed bilateral moderate pleural effusions without obvious infiltrate. She developed leukocytosis and had left shift on differential admission so antibiotics were given. She completed antibiotics for pneumonia on October 23 and and no evidence of recurrent pneumonia. Additional medication adjustments were made for heart failure. BN peptide was stable at 564 on day of discharge. Part of the elevation is likely due to chronic kidney disease. She will remain on Lanoxin, Cardizem, Lopressor, and El iquis at discharge. Hemoglobin was stable at 10.1 on day of discharge. BUN and creatinine were stable at 38 and 1.99 respectively on day of discharge. Levemir dose was increased to 18 units twice a day for hyperglycemia. She will remain on higher dose at discharge. She had intermittent abdominal discomfort with vomiting during hospitalization. Stool was sent for H. pylori antigen with results pending at time of discharge. This can be followed up by her PCP. She was started on Elavil for postherpetic neuralgia. There was significant symptomatic improvement and she will continue Elavil at discharge. Urine culture returned showing ESBL Escherichia coli. She was placed on Zosyn and remained afebrile. Antibiotics will not be continued at discharge. On October 31 she felt improved and stable for discharge home. She will follow with her PCP Dr. Luciano Figueroa within 1 week. - Time Spent with Patient Total time spent providing and/or coordinating discharge services: - Discharge Medications Prescriptions: Amitriptyline [Elavil] 50 mg PO DAILY #30 tablet Ascorbic Acid [Vitamin C] 500 mg PO 0630 #30 tablet Digoxin [Lanoxin] 0.125 mg PO DAILY #30 tablet Ferrous Sulfate 325 mg PO 0630 #30 tablet Levothyroxine [Synthroid] 250 mcg PO 0630 #60 tablet Home Medications: Albuterol Neb [Proventil Neb] 2.5 mg IH Q4H 06/01/16 [History] Budesonide Neb [Pulmicort Neb] 0.25 mg IH BID 06/01/16 [History] Diltiazem CD (24hr) [Cardizem CD] 120 mg PO DAILY 06/01/16 [History] Metoprolol [Lopressor] 50 mg PO BID 06/01/16 [History] Montelukast [Singulair] 10 mg PO QPM 06/01/16 [History] Oxycodone HCl 5 mg PO Q6HR PRN 06/01/16 [History] Albuterol Sulfate [Proair Hfa] 1 puff IH QID PRN #0 06/04/16 [Rx] Apixaban [Eliquis] 5 mg PO BID 10/17/18 [History] Bumetanide [Bumex] 0.5 mg PO DAILY 10/17/18 [History] Dapagliflozin Propanediol [Farxiga] 5 mg PO DAILY 10/17/18 [History] Gabapentin [Neurontin] 300 mg PO TID 10/17/18 [History] Tramadol HCl [Ultram] 50 mg PO QID PRN 10/17/18 [History] Digoxin [Lanoxin] 0.125 mg PO DAILY tablet 10/21/18 [Rx] Amitriptyline [Elavil] 50 mg PO DAILY #30 tablet 10/31/18 [Rx] Ascorbic Acid [Vitamin C] 500 mg PO 0630 #30 tablet 10/31/18 [Rx] Digoxin [Lanoxin] 0.125 mg PO DAILY #30 tablet 10/31/18 [Rx] Ferrous Sulfate 325 mg PO 0630 #30 tablet 10/31/18 [Rx] Insulin DETEMIR [Levemir] 18 unit SQ BID [id number] 10/31/18 [Rx] Levothyroxine [Synthroid] 250 mcg PO 0630 #60 tablet 10/31/18 [Rx] Allergies/Adverse Reactions: Allergy/AdvReac Type Severity Reaction Status Date / Time Iodinated Contrast- Oral and Allergy Intermediate See Verified 06/01/16 12:33 IV Dye Comments adhesive tape Allergy Itching Verified 06/01/16 12:34 pentazocine [From Talwin] AdvReac Hives Verified 06/01/16 04:54 Date of admission: 10/21/18 14:46 Primary care physician: Luciano Figueroa M.D. Consults: 10/21/18 15:17 Consult to Occupational Therapy [CONS] Routine Comment: evaluate, develop, and implement plan of care Reason for Consult: evaluate, develop, and implement plan of care Does patient have active BEDREST order?: No Is patient medically & hemodynamically stable?: Yes Patient assessed for mobility or mobilized this visit?: No Consult to Physical Therapy [CONS] Routine Comment: evaluate, develop, and implement plan of care Reason for Consult: evaluate, develop, and implement plan of care Does patient have active BEDREST order?: No Is patient medically & hemodynamically stable?: Yes Patient assessed for mobility or mobilized this visit?: No Consult to Clinical Faculty [CONS] Routine Reason for SW Consult: discharge planning - Constitutional Vitals: Temp Pulse Resp BP Pulse Ox 98.1 F 68 16 104/47 99 10/31/18 06:41 10/31/18 06:41 10/31/18 09:10 10/31/18 06:41 10/31/18 09:10 - Patient Status Disposition: Home, Self-Care - Discharge Instructions Follow Up With: Luciano Figueroa MD [Partnered Physician] - 1 week - Diet and Activity Activity: resume usual activities as tolerated Diet: advance to your usual diet
--- NOTE | 2018-10-31 10:31 | Physician Discharge Referral ---
Home Health/Hosp Referral Info Transfer to: Home Health Attending Provider: Jewel Provider in Charge Post Discharge: PCP (Luciano Figueroa M.D.) - Diagnosis (1) CHF (congestive heart failure) Priority: Primary Status: Acute (2) Pneumonia Priority: Secondary Status: Acute (3) Anemia Status: Acute (4) T2DM (type 2 diabetes mellitus) Priority: Secondary Status: Chronic (5) CKD (chronic kidney disease) stage 4, GFR 15-29 ml/min Priority: Secondary Status: Chronic (6) Hypothyroidism Priority: Secondary Status: Chronic (7) Atrial fibrillation Priority: Secondary Status: Chronic (8) Abdominal discomfort Priority: Secondary Status: Acute (9) Postherpetic neuralgia Priority: Secondary Status: Chronic (10) UTI (urinary tract infection) Priority: Secondary Status: Acute - Respiratory Orders Smoking Cessation: Smoking cessation has been advised. For more information, call the [place] Tobacco Quit Line at 5-268-KCRC-NOW. - Diet/Nutrition Diet/Nutrition Orders: No Concentrated Sweets - Activity Activity Orders: Ambulate - Services Needed Following services are medically necessary services: Nursing, Home Health Aide, Physical Therapy, Occupational Therapy - Transfer Medications Prescriptions: Amitriptyline [Elavil] 50 mg PO DAILY #30 tablet Ascorbic Acid [Vitamin C] 500 mg PO 0630 #30 tablet Digoxin [Lanoxin] 0.125 mg PO DAILY #30 tablet Ferrous Sulfate 325 mg PO 0630 #30 tablet Levothyroxine [Synthroid] 250 mcg PO 0630 #60 tablet Home Medications: Albuterol Neb [Proventil Neb] 2.5 mg IH Q4H 06/01/16 [History] Budesonide Neb [Pulmicort Neb] 0.25 mg IH BID 06/01/16 [History] Diltiazem CD (24hr) [Cardizem CD] 120 mg PO DAILY 06/01/16 [History] Metoprolol [Lopressor] 50 mg PO BID 06/01/16 [History] Montelukast [Singulair] 10 mg PO QPM 06/01/16 [History] Oxycodone HCl 5 mg PO Q6HR PRN 06/01/16 [History] Albuterol Sulfate [Proair Hfa] 1 puff IH QID PRN #0 06/04/16 [Rx] Apixaban [Eliquis] 5 mg PO BID 10/17/18 [History] Bumetanide [Bumex] 0.5 mg PO DAILY 10/17/18 [History] Dapagliflozin Propanediol [Farxiga] 5 mg PO DAILY 10/17/18 [History] Gabapentin [Neurontin] 300 mg PO TID 10/17/18 [History] Tramadol HCl [Ultram] 50 mg PO QID PRN 10/17/18 [History] Digoxin [Lanoxin] 0.125 mg PO DAILY tablet 10/21/18 [Rx] Amitriptyline [Elavil] 50 mg PO DAILY #30 tablet 10/31/18 [Rx] Ascorbic Acid [Vitamin C] 500 mg PO 0630 #30 tablet 10/31/18 [Rx] Digoxin [Lanoxin] 0.125 mg PO DAILY #30 tablet 10/31/18 [Rx] Ferrous Sulfate 325 mg PO 0630 #30 tablet 10/31/18 [Rx] Insulin DETEMIR [Levemir] 18 unit SQ BID [id number] 10/31/18 [Rx] Levothyroxine [Synthroid] 250 mcg PO 0630 #60 tablet 10/31/18 [Rx] Allergies/Adverse Reactions: Allergy/AdvReac Type Severity Reaction Status Date / Time Iodinated Contrast- Oral and Allergy Intermediate See Verified 06/01/16 12:33 IV Dye Comments adhesive tape Allergy Itching Verified 06/01/16 12:34 pentazocine [From Dory] AdvReac Hives Verified 06/01/16 04:54 Certification: Further, I certify that my clinical findings support that this patient is homebound (i.e. absences from home require considerable and taxing effort and are for medical reasons or mandaen services or infrequently or short duration when for other reasons) because: Homebound Reason: Leaving home requires considerable and taxing effort due to condition (Impaired walking ability secondary to heart failure and obesity) Attestation: My signature below is to certify that this patient is under my care and that I, or nurse practitioner, or a physician's cataloging assistant working with me, has a [id number] encounter with this patient.
[2018-10-31] MEDS: Insulin DETEMIR 100 UNIT/ML X5UNITS SQ SCH (11:56)
== END 2018-10-31 12:16 | disposition home or self-care (01) | DRG 291 ==
LOC: INPPIK 14:46
PROVIDERS: ADMIT Internal Medicine; ATTEND Internal Medicine

== ENCOUNTER 2018-11-11 12:05 | Inpatient (IN) ==
[2018-11-11] MEDS ORDERED: Albuterol 2.5 MG/3 ML NEBULIZER IH PRN (17:46)
[2018-11-11] MEDS ORDERED: Ondansetron ODT 4 MG TAB.RAPDIS PO PRN (17:46)
[2018-11-11] MEDS ORDERED: Insulin DETEMIR 100 UNIT/ML per UNIT SQ ONE (18:00)
[2018-11-11] MEDS ORDERED: NON-FORMULARY MEDICATION 1 EACH EACH (Insulin Lispro [Humalog Kwikpen U-100] 0 UNIT) SQ SCH (21:00)
[2018-11-11] MEDS: Apixaban 5 MG TABLET PO SCH (21:19)
[2018-11-11] MEDS: Gabapentin 300 MG CAPSULE PO SCH (21:19)
[2018-11-11] MEDS: Budesonide Neb 0.25 MG/2 ML IH SCH (21:41)
[2018-11-11] MEDS ORDERED: D5% in Water 1,000 ML IVC PRN (22:13)
[2018-11-11] MEDS ORDERED: Dextrose 4 GM Chewable Tablets PO PRN ×2 (22:13)
[2018-11-11] MEDS ORDERED: Dextrose Gel 15 GM/37.5 ML TUBE PO PRN ×2 (22:13)
[2018-11-11] MEDS ORDERED: *HR* Dextrose 50 % in Water (Syg) 50 ML SYRINGE IVP PRN (22:13)
[2018-11-12] MEDS ORDERED: Piperacillin/Tazobactam 3.375 GM VIAL IVPB SCH
[2018-11-12] MEDS: *HR* OxyCODONE Immed Rel 5 MG TABLET PO PRN (00:43)
[2018-11-12] MEDS: Piperacillin/Tazobactam 3.375 GM in 0.9 % Sodium Chloride Mini Bag 100 ML IVPB SCH ×3 (00:49→17:22)
[2018-11-12] MEDS: Budesonide/Formoterol 80/4.5 MDI IH SCH ×2 (05:12→17:31)
[2018-11-12] MEDS: Ascorbic Acid 500 MG TABLET PO SCH (05:41)
[2018-11-12 07:54] LABS: ABG Base Excess 7 mEq/L (-2 to 3); ABG HCO3 36 mEq/L (21-27); ABG Oxygen Saturation 92 % (95-98); ABG PCO2 75 mmHg (35-45); ABG PH 7.29 pH Units (7.32-7.45); ABG PO2 73 mmHg (85-104); ABG TCO2 39 mEq/L (20-26)
[2018-11-12] MEDS: Insulin LISPRO 300 UNITS/3 ML VIAL SQ SCH ×4 (09:44→20:23)
[2018-11-12] MEDS: Cholecalciferol (D-3) 1,000 UNIT TABLET PO SCH (09:46)
[2018-11-12] MEDS: Apixaban 5 MG TABLET PO SCH ×2 (09:46→20:22)
[2018-11-12] MEDS: Gabapentin 300 MG CAPSULE PO SCH ×3 (09:46→20:22)
[2018-11-12] MEDS: Cyanocobalamin (B-12) 1,000 MCG TABLET PO SCH (09:46)
[2018-11-12] MEDS: *HR* Digoxin 0.125 MG TABLET PO SCH (09:46)
[2018-11-12] MEDS: Spironolactone 25 MG TABLET PO SCH (09:46)
[2018-11-12] MEDS: Bumetanide 1 MG TABLET PO SCH (09:46)
[2018-11-12] MEDS: Diltiazem CD (24hr) 120 MG CAPSULE PO SCH (09:46)
[2018-11-12] MEDS: (Dapagliflozin Propanediol [Farxiga] 5 MG) PO SCH (09:58)
[2018-11-12] MEDS: Budesonide Neb 0.25 MG/2 ML IH SCH ×2 (10:06→21:52)
[2018-11-12] MEDS: Insulin DETEMIR 100 UNIT/ML X5UNITS SQ SCH (17:21)
--- NOTE | 2018-11-12 19:05 | Internal Med History&Physical ---
Date of Encounter: 11/12/18 Time of Encounter: 18:35 Assessment and Plan (1) UTI (urinary tract infection) Current visit: No Status: Acute Escherichia coli MDRO. Continue IV Zosyn through November 15. Lactobacillus will be added. Qualifiers: Urinary tract infection type: site unspecified Hematuria presence: without hematuria Qualified Code(s): N39.0 - Urinary tract infection, site not specified (2) T2DM (type 2 diabetes mellitus) Current visit: No Status: Chronic Improvement A1c was 8.7% on 10/14/2018. Continue Levemir and Accu-Cheks with SSI. Qualifiers: Diabetes mellitus snf insulin use: with snf use Diabetes mellitus complication status: with hyperglycemia Qualified Code(s): E11.65 - Type 2 diabetes mellitus with hyperglycemia; Z79.4 - long term care pharmacist (current) use of insulin (3) CKD (chronic kidney disease) stage 4, GFR 15-29 ml/min Current visit: No Status: Chronic Monitor renal indices. (4) Anemia Current visit: No Status: Chronic November 12. Anemia testing 10/14/2018 showed iron 37, transferrin saturation 13%, transferrin 209, ferritin 145, and B12 969. Continue ferrous sulfate with ascorbic acid. Qualifiers: Anemia type: due to chronic kidney disease Chronic kidney disease stage: stage 4 (severe) Qualified Code(s): N18.4 - Chronic kidney disease, stage 4 (severe); D63.1 - Anemia in chronic kidney disease (5) Hypothyroidism Current visit: No Status: Chronic Continue Synthroid Qualifiers: Hypothyroidism type: unspecified Qualified Code(s): E03.9 - Hypothyroidism, unspecified (6) CHF (congestive heart failure) Current visit: No Status: Chronic Continue Bumex, Lanoxin, Aldactone, and Lopressor. Qualifiers: Heart failure type: diastolic Heart failure chronicity: chronic Qualified Code(s): I50.32 - Chronic diastolic (congestive) heart failure (7) Atrial fibrillation Current visit: No Status: Chronic Continue Eliquis, Lanoxin, Cardizem, and Lopressor. Qualifiers: Atrial fibrillation type: chronic Qualified Code(s): I48.2 - Chronic atrial fibrillation (8) Postherpetic neuralgia Current visit: No Status: Chronic Continue amitriptyline. Internal Medicine - H&P: HPI Chief complaint: UTI, acute on chronic respiratory failure Admitted From: Hospital to Hospital Transfer Plans for Post Hospital Care: Home History of present illness: Ms. Fink is a 73 year old female who was admitted to [facility] November 04- with encephalopathy. She had acute respiratory failure with hypoxia and qualified for BiPAP on sleep study. Escherichia coli MDRO UTI was documented and she was placed on Zosyn. She was discharged to [facility] swing bed to continue IV antibiotics for 4 additional days. She had been hospitalized in acute-care and swing bed at [facility] October 18-October 31. Past Med Surg Social Fam HX - Past Medical History Medical history: arthritis, asthma, atrial fibrillation, CHF, DVT, diabetes, fibromyalgia, GERD, hyperlipidemia, hypertension, thyroid disease, other Additional medical history: LEAKING MITRAL VALVE, REPLACED AORTIC VALVE Psychiatric history: no psych history - Past Surgical History Surgical History: appendectomy, cholecystectomy, ureteral stent Additional surgical history: DVT IN LEG AFTER KNEE SURG, bilateral knee replacement - Social History Smoking Status: Former smoker Smokeless Tobacco Status: No Alcohol use: none Drug use: none - Family History Father Hx Family Cardiac Disorders: Yes Internal Medicine - H&P: Meds Albuterol Neb [Proventil Neb] 2.5 mg IH Q4H PRN 06/01/16 [History] Metoprolol [Lopressor] 50 mg PO BID 06/01/16 [History] Montelukast [Singulair] 10 mg PO QPM 06/01/16 [History] Oxycodone HCl 5 mg PO Q6HR PRN MDD see notes 06/01/16 [History] Apixaban [Eliquis] 5 mg PO BID 10/17/18 [History] Bumetanide [Bumex] 0.5 mg PO DAILY 10/17/18 [History] Dapagliflozin Propanediol [Farxiga] 5 mg PO DAILY 10/17/18 [History] Gabapentin [Neurontin] 300 mg PO TID 10/17/18 [History] Amitriptyline [Elavil] 50 mg PO DAILY #30 tablet 10/31/18 [Rx] Ascorbic Acid [Vitamin C] 500 mg PO 0630 #30 tablet 10/31/18 [Rx] Digoxin [Lanoxin] 0.125 mg PO DAILY #30 tablet 10/31/18 [Rx] Ferrous Sulfate 325 mg PO 0630 #30 tablet 10/31/18 [Rx] Levothyroxine [Synthroid] 250 mcg PO 0630 #60 tablet 10/31/18 [Rx] Albuterol Sulfate [Proventil Hfa] 2 puff IH Q4-6H PRN 11/04/18 [History] Cholecalciferol (D-3) [Vitamin D] 2,000 unit PO DAILY 11/04/18 [History] Cyanocobalamin (Vitamin B-12) [Vitamin B12] 1,000 mcg PO DAILY 11/04/18 [History] Docusate [Colace] 100 mg PO BID 11/04/18 [History] Insulin Glargine,Hum.rec.anlog [Lantus Solostar] 40 unit SQ QPM 11/04/18 [History] Insulin LISPRO [Humalog Kwikpen U-100] 0 - 10 unit SQ ACHS 11/04/18 [History] Mometasone/Formoterol [Dulera 100 Mcg/5 Mcg Inhaler] 2 puff IH BID 11/04/18 [History] Omeprazole [PriLOSEC] 20 mg PO DAILY 11/04/18 [History] Ondansetron HCl [Zofran] 4 mg PO Q8H PRN 11/04/18 [History] Spironolactone [Aldactone] 25 mg PO DAILY 11/04/18 [History] Budesonide Neb [Pulmicort Neb] 0.25 mg IH BIDRESP inhsol 11/11/18 [Rx] Diltiazem CD (24hr) [Cardizem CD] 120 mg PO DAILY cap.er.24h 11/11/18 [Rx] Piperacillin/Tazobactam [Zosyn] 3.375 gm IVPB Q8HR 4 Days vial 11/11/18 [Rx] Allergy/AdvReac Type Severity Reaction Status Date / Time Iodinated Contrast- Oral and Allergy Intermediate See Verified 06/01/16 12:33 IV Dye Comments adhesive tape Allergy Itching Verified 06/01/16 12:34 pentazocine [From Talwin] AdvReac Hives Verified 06/01/16 04:54 All Systems PM: A 10-system review of systems was performed and is negative for pertinent findings except as documented above in the HPI. Review of systems: Review of systems from her recent [facility] hospitalization were reviewed and revised as below. Gen.: She stated at her September [facility] admission her weight had decreased approximately 25 pounds in the past year, unintentionally. Her weight has increased from 112.491 kg admission 10/17/2018 to present weight of 118.025 kg. Cardiovascular: She has history hypertension. She has chronic atrial fibrillation and is on Eliquis. 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 She denies coronary intervention done at the time of the heart cath preceding the aortic valve surgery. She has history of right leg DVT after total knee replacement and left arm DVT after cholecystectomy. She denies pulmonary emboli. She has a history of heart failure. Echocardiogram 11/04/19 showed LVEF of 60-65%. There was indeterminate diastolic function assessment due to underlying atrial fibrillation. Estimated RVSP was slightly elevated at 40 mmHg. Interventricular septum thickness measurement was elevated at 1.40 cm. Posterior wall thickness measurement was not recorded. There was LAE at 4.30 cm. The right atrium was reported moderately dilated without measurement recor ded. There was mild tricuspid regurgitation. A bioprosthetic aortic valve was observed. Respiratory: She smoked from age [age] on occasional basis. She has been told she has COPD from PFTs in the past. She reports she has used home oxygen for approximately 4 years. She was qualified for BiPAP on sleep study during her recent [facility] stay. The discharge note states she was occasionally noncompliant in use. GI: She has had cholecystectomy. She denies disorders of her liver or exocrine pancreas : She has chronic kidney disease stage III and followed with [facility] sales operations specialist in the past. She has relocated to this area but has not yet established with a sales operations specialist. She denies other kidney or bladder disorders. Neurologic: She denies large distribution strokes or seizures. Endocrine: She was diagnosed with DM 2 approximately 1998. She had subtotal thyroidectomy for goiter and now has hypothyroidism. She had lipid profile 10/14/2018 with total/HDL ratio of 4.2. Hematology/oncology: She has anemia but denies internal malignancies or other blood disorders. Psychiatric: She denies anxiety depression or other mental health issues. Mus[place] skeletal: She has DJD. She had right shoulder surgery for a spur and has had bilateral knee replacements. She denies gout or other bone joint or muscle disorders. - Constitutional Vitals: Temp Pulse Resp BP Pulse Ox 98.8 F 95 18 156/57 91 11/12/18 07:09 11/12/18 07:09 11/12/18 10:06 11/12/18 07:09 11/12/18 10:06 Exam: Gen.: She is a well-developed obese female lying in bed who appears slightly dyspneic HEENT: Head is atraumatic and normocephalic. Eyes: EOMI. There is no scleral icterus. Mouth: Mucosa is moist. Neck: Supple and nontender. There is no thyromegaly or adenopathy noted. Heart: Irregularly irregular without murmurs or gallops Lungs: No wheezes or crackles are heard. Abdomen: Soft and nontender. No masses or guarding are noted. Extremities: She has trace edema of the dorsum of the feet and lower legs bilaterally. Dorsalis pedis and posttibial pulses are not palpable. Neurologic: Mental status: She is talkative and seems to be a reliable historian. Cranial nerves: Smile is symmetric. Forehead wrinkles bilaterally. Tongue protrudes midline. EOMI. Motor: There is no pronator drift. Cerebellar: Finger to nose is intact bilaterally. Skin: Warm and dry Internal Med - H&P Results - ABG Interpretation ABG results: 11/12/18 07:48 ABG pH 7.29 L ABG pCO2 75 H* ABG pO2 73 L ABG HCO3 36 H ABG Total CO2 39 H ABG O2 Saturation 92 L ABG Base Excess 7 H
[2018-11-12] MEDS: Isosorbide MONOnitrate (24 HR) 30 MG TAB.ER.24H PO SCH (20:22)
[2018-11-13] MEDS: Piperacillin/Tazobactam 3.375 GM in 0.9 % Sodium Chloride Mini Bag 100 ML IVPB SCH ×3 (01:01→17:07)
[2018-11-13] MEDS: Ascorbic Acid 500 MG TABLET PO SCH (05:42)
[2018-11-13 06:27] LABS: Digoxin 1.9 ng/mL (0.8-2.0); Magnesium 1.8 mg/dL (1.6-2.6); Potassium 4.2 mEq/L (3.5-5.1)
[2018-11-13 06:38] LABS: Thyroid Stimulating Hormone 0.682 mcIU/mL (0.340-5.600)
[2018-11-13] MEDS: Cyanocobalamin (B-12) 1,000 MCG TABLET PO SCH (08:52)
[2018-11-13] MEDS: Bumetanide 1 MG TABLET PO SCH (08:52)
[2018-11-13] MEDS: Cholecalciferol (D-3) 1,000 UNIT TABLET PO SCH (08:52)
[2018-11-13] MEDS: Apixaban 5 MG TABLET PO SCH ×2 (08:52→20:45)
[2018-11-13] MEDS: *HR* Digoxin 0.125 MG TABLET PO SCH (08:53)
[2018-11-13] MEDS: Isosorbide MONOnitrate (24 HR) 30 MG TAB.ER.24H PO SCH (08:53)
[2018-11-13] MEDS: Spironolactone 25 MG TABLET PO SCH (08:53)
[2018-11-13] MEDS: Gabapentin 300 MG CAPSULE PO SCH ×4 (08:54→20:46)
[2018-11-13] MEDS: Insulin LISPRO 300 UNITS/3 ML VIAL SQ SCH ×4 (08:54→20:46)
[2018-11-13] MEDS: Diltiazem CD (24hr) 120 MG CAPSULE PO SCH (08:55)
[2018-11-13] MEDS: (Dapagliflozin Propanediol [Farxiga] 5 MG) PO SCH (08:55)
[2018-11-13] MEDS: *HR* OxyCODONE Immed Rel 5 MG TABLET PO PRN ×2 (09:06→20:53)
[2018-11-13] MEDS: Budesonide Neb 0.25 MG/2 ML IH SCH ×2 (10:50→22:19)
[2018-11-13] MEDS: Budesonide/Formoterol 80/4.5 MDI IH SCH (15:05)
[2018-11-13] MEDS: Insulin DETEMIR 100 UNIT/ML X5UNITS SQ SCH (17:06)
[2018-11-14] MEDS: Piperacillin/Tazobactam 3.375 GM in 0.9 % Sodium Chloride Mini Bag 100 ML IVPB SCH ×3 (00:43→16:49)
[2018-11-14] MEDS: Ascorbic Acid 500 MG TABLET PO SCH (06:33)
[2018-11-14] MEDS: (Dapagliflozin Propanediol [Farxiga] 5 MG) PO SCH (08:10)
[2018-11-14] MEDS: Insulin LISPRO 300 UNITS/3 ML VIAL SQ SCH ×4 (08:14→20:53)
[2018-11-14] MEDS: Apixaban 5 MG TABLET PO SCH ×2 (09:36→20:53)
[2018-11-14] MEDS: Bumetanide 1 MG TABLET PO SCH (09:37)
[2018-11-14] MEDS: Cholecalciferol (D-3) 1,000 UNIT TABLET PO SCH (09:38)
[2018-11-14] MEDS: *HR* Digoxin 0.125 MG TABLET PO SCH (09:38)
[2018-11-14] MEDS: Spironolactone 25 MG TABLET PO SCH (09:40)
[2018-11-14] MEDS: Isosorbide MONOnitrate (24 HR) 30 MG TAB.ER.24H PO SCH (09:41)
[2018-11-14] MEDS: Cyanocobalamin (B-12) 1,000 MCG TABLET PO SCH (09:41)
[2018-11-14] MEDS: Diltiazem CD (24hr) 120 MG CAPSULE PO SCH (09:42)
[2018-11-14] MEDS: Gabapentin 300 MG CAPSULE PO SCH ×3 (09:42→20:53)
[2018-11-14] MEDS: Budesonide Neb 0.25 MG/2 ML IH SCH ×2 (10:37→23:15)
--- NOTE | 2018-11-14 14:03 | Internal Med Progress Note ---
Date of Encounter: 11/14/18 Time of Encounter: 13:55 - Assessment and plan (1) UTI (urinary tract infection) Current Visit: No Status: Acute Assessment and plan: november 14. Escherichia coli MDRO. Continue IV Zosyn with lactobacillus through November 15. Qualifiers: Urinary tract infection type: site unspecified Hematuria presence: without hematuria Qualified Code(s): N39.0 - Urinary tract infection, site not specified (2) T2DM (type 2 diabetes mellitus) Current Visit: No Status: Chronic Assessment and plan: November 14. Hemoglobin A1c was 8.7% on 10/14/2018. Continue Levemir and Accu- Cheks with SSI. Qualifiers: Diabetes mellitus senior care insulin use: with local company intermodal truck driver use Diabetes mellitus complication status: with hyperglycemia Qualified Code(s): E11.65 - Type 2 diabetes mellitus with hyperglycemia; Z79.4 - snf (current) use of insulin (3) CKD (chronic kidney disease) stage 4, GFR 15-29 ml/min Current Visit: No Status: Chronic Assessment and plan: November 14. Monitor renal indices. (4) Anemia Current Visit: No Status: Chronic Assessment and plan: November 14. Anemia testing 10/14/2018 showed iron 37, transferrin saturation 13%, transferrin 209, ferritin 145, and B12 969. Continue ferrous sulfate with ascorbic acid. Qualifiers: Anemia type: due to chronic kidney disease Chronic kidney disease stage: stage 4 (severe) Qualified Code(s): N18.4 - Chronic kidney disease, stage 4 (severe); D63.1 - Anemia in chronic kidney disease (5) Hypothyroidism Current Visit: No Status: Chronic Assessment and plan: November 14. Continue Synthroid Qualifiers: Hypothyroidism type: unspecified Qualified Code(s): E03.9 - Hypothyroidism, unspecified (6) CHF (congestive heart failure) Current Visit: No Status: Chronic Assessment and plan: November 14. Continue Bumex, Lanoxin, Aldactone, and Lopressor Qualifiers: Heart failure type: diastolic Heart failure chronicity: chronic Qualified Code(s): I50.32 - Chronic diastolic (congestive) heart failure (7) Atrial fibrillation Current Visit: No Status: Chronic Assessment and plan: November 14. Continue Eliquis, Lanoxin, Cardizem, and Lopressor Qualifiers: Atrial fibrillation type: chronic Qualified Code(s): I48.2 - Chronic atrial fibrillation (8) Postherpetic neuralgia Current Visit: No Status: Chronic Assessment and plan: November 14. Continue amitriptyline. - Subjective Interval history: November 14. She has no new complaints. She states she feels weak. She had an assisted fall earlier today without injury. - Constitutional Vitals: Temp Pulse Resp BP Pulse Ox 98.2 F 90 20 153/65 91 11/14/18 08:44 11/14/18 08:44 11/14/18 10:37 11/14/18 08:44 11/14/18 10:37 Exam: She is resting comfortably in bed and appears in no acute distress. Her affect is overall cheerful. Her speech is appropriate. I reviewed her medications and lab results. Internal Medicine: Result - Labs CBC & Chem 7: 11/13/18 05:02 - ABG Interpretation ABG results: ABG ABG pH 7.29 pH Units (7.32-7.45) L 11/12/18 07:48 ABG pCO2 75 mmHg (35-45) H* 11/12/18 07:48 ABG pO2 73 mmHg (85-104) L 11/12/18 07:48 ABG O2 Saturation 92 % (95-98) L 11/12/18 07:48 Consult Discharge Plan - Plan Referrals: Luciano Figueroa MD [Primary Care Provider] - 1 week
[2018-11-14] MEDS: Budesonide/Formoterol 80/4.5 MDI IH SCH (16:35)
[2018-11-14] MEDS: Insulin DETEMIR 100 UNIT/ML X5UNITS SQ SCH (18:15)
[2018-11-15] MEDS: Piperacillin/Tazobactam 3.375 GM in 0.9 % Sodium Chloride Mini Bag 100 ML IVPB SCH ×3 (01:26→17:33)
[2018-11-15] MEDS: Budesonide/Formoterol 80/4.5 MDI IH SCH ×4 (03:47→22:11)
[2018-11-15] MEDS: Ascorbic Acid 500 MG TABLET PO SCH (06:53)
[2018-11-15] MEDS: Gabapentin 300 MG CAPSULE PO SCH ×3 (08:58→21:41)
[2018-11-15] MEDS: Diltiazem CD (24hr) 120 MG CAPSULE PO SCH (09:00)
[2018-11-15] MEDS: Cyanocobalamin (B-12) 1,000 MCG TABLET PO SCH (09:00)
[2018-11-15] MEDS: Apixaban 5 MG TABLET PO SCH ×2 (09:00→21:41)
[2018-11-15] MEDS: Spironolactone 25 MG TABLET PO SCH (09:00)
[2018-11-15] MEDS: Isosorbide MONOnitrate (24 HR) 30 MG TAB.ER.24H PO SCH (09:00)
[2018-11-15] MEDS: Cholecalciferol (D-3) 1,000 UNIT TABLET PO SCH (09:00)
[2018-11-15] MEDS: *HR* Digoxin 0.125 MG TABLET PO SCH (09:00)
[2018-11-15] MEDS: Bumetanide 1 MG TABLET PO SCH (09:00)
[2018-11-15] MEDS: Insulin LISPRO 300 UNITS/3 ML VIAL SQ SCH ×4 (09:01→21:42)
[2018-11-15] MEDS: (Dapagliflozin Propanediol [Farxiga] 5 MG) PO SCH (09:01)
[2018-11-15] MEDS: Budesonide Neb 0.25 MG/2 ML IH SCH (11:04)
[2018-11-15] MEDS: *HR* OxyCODONE Immed Rel 5 MG TABLET PO PRN (15:17)
[2018-11-15] MEDS ORDERED: *HR* Promethazine 25 MG/ML VIAL IVP PRN (18:34)
[2018-11-15] MEDS: Insulin DETEMIR 100 UNIT/ML X5UNITS SQ SCH (18:45)
[2018-11-16] MEDS: Piperacillin/Tazobactam 3.375 GM in 0.9 % Sodium Chloride Mini Bag 100 ML IVPB SCH ×2 (00:31→08:28)
[2018-11-16] MEDS: Ascorbic Acid 500 MG TABLET PO SCH (05:37)
[2018-11-16] MEDS: Bumetanide 1 MG TABLET PO SCH (08:26)
[2018-11-16] MEDS: Spironolactone 25 MG TABLET PO SCH (08:26)
[2018-11-16] MEDS: Gabapentin 300 MG CAPSULE PO SCH ×3 (08:27→20:45)
[2018-11-16] MEDS: Isosorbide MONOnitrate (24 HR) 30 MG TAB.ER.24H PO SCH (08:27)
[2018-11-16] MEDS: Cyanocobalamin (B-12) 1,000 MCG TABLET PO SCH (08:27)
[2018-11-16] MEDS: Apixaban 5 MG TABLET PO SCH ×2 (08:27→20:12)
[2018-11-16] MEDS: Diltiazem CD (24hr) 120 MG CAPSULE PO SCH (08:27)
[2018-11-16] MEDS: *HR* Digoxin 0.125 MG TABLET PO SCH (08:27)
[2018-11-16] MEDS: Cholecalciferol (D-3) 1,000 UNIT TABLET PO SCH (08:27)
[2018-11-16] MEDS: Insulin LISPRO 300 UNITS/3 ML VIAL SQ SCH ×4 (08:28→20:10)
[2018-11-16] MEDS: (Dapagliflozin Propanediol [Farxiga] 5 MG) PO SCH (08:29)
[2018-11-16] MEDS: Budesonide/Formoterol 80/4.5 MDI IH SCH ×2 (11:05→21:59)
--- NOTE | 2018-11-16 13:01 | Internal Med Progress Note ---
Date of Encounter: 11/16/18 Time of Encounter: 12:52 - Assessment and plan (1) UTI (urinary tract infection) Current Visit: No Status: Acute Assessment and plan: november 14. Escherichia coli MDRO. Continue IV Zosyn with lactobacillus through November 15. November 16. Will discontinue Zosyn. Qualifiers: Urinary tract infection type: site unspecified Hematuria presence: without hematuria Qualified Code(s): N39.0 - Urinary tract infection, site not specified (2) T2DM (type 2 diabetes mellitus) Current Visit: No Status: Chronic Assessment and plan: November 14. Hemoglobin A1c was 8.7% on 10/14/2018. Continue Levemir and Accu- Cheks with SSI. Qualifiers: Diabetes mellitus lobsterman insulin use: with detention use Diabetes mellitus complication status: with hyperglycemia Qualified Code(s): E11.65 - Type 2 diabetes mellitus with hyperglycemia; Z79.4 - assisted (current) use of insulin (3) CKD (chronic kidney disease) stage 4, GFR 15-29 ml/min Current Visit: No Status: Chronic Assessment and plan: November 14. Monitor renal indices. (4) Anemia Current Visit: No Status: Chronic Assessment and plan: November 14. Anemia testing 10/14/2018 showed iron 37, transferrin saturation 13%, transferrin 209, ferritin 145, and B12 969. Continue ferrous sulfate with ascorbic acid. Qualifiers: Anemia type: due to chronic kidney disease Chronic kidney disease stage: stage 4 (severe) Qualified Code(s): N18.4 - Chronic kidney disease, stage 4 (severe); D63.1 - Anemia in chronic kidney disease (5) Hypothyroidism Current Visit: No Status: Chronic Assessment and plan: November 14. Continue Synthroid Qualifiers: Hypothyroidism type: unspecified Qualified Code(s): E03.9 - Hypothyroidism, unspecified (6) CHF (congestive heart failure) Current Visit: No Status: Chronic Assessment and plan: November 14. Continue Bumex, Lanoxin, Aldactone, and Lopressor Qualifiers: Heart failure type: diastolic Heart failure chronicity: chronic Qualified Code(s): I50.32 - Chronic diastolic (congestive) heart failure (7) Atrial fibrillation Current Visit: No Status: Chronic Assessment and plan: November 14. Continue Eliquis, Lanoxin, Cardizem, and Lopressor Qualifiers: Atrial fibrillation type: chronic Qualified Code(s): I48.2 - Chronic atrial fibrillation (8) Postherpetic neuralgia Current Visit: No Status: Chronic Assessment and plan: November 14. Continue amitriptyline. - Subjective Interval history: November 14. She has no new complaints. She states she feels weak. She had an assisted fall earlier today without injury. November 16. She has no new complaints. - Constitutional Vitals: Temp Pulse Resp BP Pulse Ox 97.5 F L 81 16 124/67 94 11/16/18 07:29 11/16/18 07:29 11/16/18 11:05 11/16/18 07:29 11/16/18 11:05 Exam: She is resting comfortably in a chair at bedside. Her affect is overall cheerful. I reviewed her medications and lab results. Internal Medicine: Result - Labs CBC & Chem 7: 11/13/18 05:02 - ABG Interpretation ABG results: ABG ABG pH 7.29 pH Units (7.32-7.45) L 11/12/18 07:48 ABG pCO2 75 mmHg (35-45) H* 11/12/18 07:48 ABG pO2 73 mmHg (85-104) L 11/12/18 07:48 ABG O2 Saturation 92 % (95-98) L 11/12/18 07:48 Consult Discharge Plan - Plan Referrals: Luciano Figueroa MD [Primary Care Provider] - 1 week
[2018-11-16] MEDS: Ondansetron 4 MG/2 ML VIAL IVP PRN ×2 (16:32→20:41)
[2018-11-16] MEDS: *HR* OxyCODONE Immed Rel 5 MG TABLET PO PRN (16:32)
[2018-11-16] MEDS: Insulin DETEMIR 100 UNIT/ML X5UNITS SQ SCH (18:43)
[2018-11-17] MEDS ORDERED: Furosemide 40 MG/4 ML VIAL IVP ONE (01:02)
[2018-11-17] MEDS ORDERED: Furosemide 40 MG/4 ML VIAL ONE (01:03)
[2018-11-17 01:13] LABS: Basophils # 0.1 K/mcL (0.0-0.2); Basophils % 0.8 %; Eosinophils # 0.3 K/mcL (0.0-0.6); Eosinophils % 2.1 %; Hematocrit 36.8 % (35.3-44.9); Hemoglobin 10.3 g/dL (11.5-15.4); Immature Granulocytes % 4.8 % (0-4); Lymphocytes # 6.6 K/mcL (0.6-4.6); Lymphocytes % 43.8 %; Mean Corpuscular Hemoglobin 27.5 pg (28.0-33.3); Mean Corpuscular Volume 98.4 fL (83.0-100.0); Mean Platelet Volume 10.6 fL (9.4-12.4); Monocytes # 0.7 K/mcL (0.0-1.3); Monocytes % 4.6 %; Nucleated Red Blood Cells 0.1 /100 WBC (0); Platelet Count 305 K/mcL (140-400); Red Blood Count 3.74 M/mcL (3.82-4.97); Red Cell Distribution Width 14.6 % (11.5-14.5); Segmented Neutrophils % 43.9 %
[2018-11-17 01:15] LABS: Neutrophils # 6.6 K/mcL (1.6-8.9)
[2018-11-17 01:20] LABS: Prothrombin Time 22.3 Seconds (9.4-12.1)
[2018-11-17 01:23] LABS: Activated Partial Thrombo Time 41.8 Seconds (26.0-36.0)
[2018-11-17 01:33] LABS: Albumin 3.2 g/dL (3.5-5.7); Albumin/Globulin Ratio 0.9 (1.1-2.2); Bilirubin,Total 0.4 mg/dL (0.3-1.0); Calcium 8.9 mg/dL (8.6-10.3); Globulin 3.6 g/dL (2.4-3.5); Potassium 4.5 mEq/L (3.5-5.1); Total Protein 6.8 g/dL (6.4-8.9)
[2018-11-17 01:41] LABS: ABG Base Excess 1 mEq/L (-2 to 3); ABG HCO3 29 mEq/L (21-27); ABG Oxygen Saturation 91 % (95-98); ABG PCO2 59 mmHg (35-45); ABG PO2 69 mmHg (85-104); ABG TCO2 31 mEq/L (20-26); Blood Gas Modality ASSIST CONTROL; Blood Gas Respiration Rate 16; Blood Gas VT 500 cc
[2018-11-17 01:42] LABS: Troponin I 0.04 ng/mL (< 0.04)
[2018-11-17] MEDS ORDERED: 0.9 % Sodium Chloride 1,000 ML IVC ONE (01:56)
[2018-11-17] MEDS ORDERED: 0.9 % Sodium Chloride 1,000 ML ONE (01:58)
[2018-11-17] MEDS ORDERED: Norepinephrine 4 MG in D5% in Water 250 ML IVC SCH (02:00)
[2018-11-17 05:10] VITALS: BP 159/74
--- NOTE | 2018-11-17 09:00 | Electrocardiograph Report ---
[address], [place] [address] Test Date: 2018-11-17 Pat Name: [facility] Department: [id number] Room: [facility] Gender: F Repair Department Manager: : 1945 Requested By: Beata Contreras Order Number: [id number] Reading MD: Miguel Ng Measurements Intervals [place] Rate: 61 P: 223 MD: 224 QRS: 28 QRSD: 78 T: 6 QT: 367 QTc: 369 Interpretive Statements Atrial fibrillation Nonspecific ST-T changes Electronically Signed On 11-17-2018 8:59:27 EST by Miguel Ng
--- NOTE | 2018-11-17 18:02 | Discharge Summary ---
Date of Encounter: 11/17/18 Time of Encounter: 18:00 - Discharge Diagnosis (1) UTI (urinary tract infection) Priority: Primary Status: Acute Qualifiers: Urinary tract infection type: site unspecified Hematuria presence: without hematuria Qualified Code(s): N39.0 - Urinary tract infection, site not specified (2) Cardiopulmonary arrest Priority: Secondary Status: Acute (3) T2DM (type 2 diabetes mellitus) Priority: Secondary Status: Chronic Qualifiers: Diabetes mellitus paper sealer insulin use: with paper sealer use Diabetes mellitus complication status: with hyperglycemia Qualified Code(s): E11.65 - Type 2 diabetes mellitus with hyperglycemia; Z79.4 - liquid center assembler (current) use of insulin (4) CKD (chronic kidney disease) stage 4, GFR 15-29 ml/min Priority: Secondary Status: Chronic (5) Anemia Priority: Secondary Status: Chronic Qualifiers: Anemia type: due to chronic kidney disease Chronic kidney disease stage: stage 4 (severe) Qualified Code(s): N18.4 - Chronic kidney disease, stage 4 (severe); D63.1 - Anemia in chronic kidney disease (6) Hypothyroidism Priority: Secondary Status: Chronic Qualifiers: Hypothyroidism type: unspecified Qualified Code(s): E03.9 - Hypothyroidism, unspecified (7) CHF (congestive heart failure) Priority: Secondary Status: Chronic Qualifiers: Heart failure type: diastolic Heart failure chronicity: chronic Qualified Code(s): I50.32 - Chronic diastolic (congestive) heart failure (8) Atrial fibrillation Priority: Secondary Status: Chronic Qualifiers: Atrial fibrillation type: chronic Qualified Code(s): I48.2 - Chronic atrial fibrillation (9) Postherpetic neuralgia Priority: Secondary Status: Chronic Hospital course: Ms. Fink is a 73 year old female who was admitted to [facility] November 04- with encephalopathy. She had acute respiratory failure with hypoxia and qualified for BiPAP on sleep study. Escherichia coli MDRO UTI was documented and she was placed on Zosyn. She was discharged to [facility] swing bed to continue IV antibiotics for 4 additional days. She had been hospitalized in acute-care and swing bed at [facility] October 18-October 31. Initial orders written by the discharging physicians at [facility]. I saw her on November 12 and performed a swing bed history and physical. She continued IV Zosyn day 3. Lactobacillus was also given. She remained clinically stable and was afebrile during her swing bed stay. She was maintained on her [facility] discharge regimen of Bumex, Lanoxin, Aldactone, and Lopressor for heart failure. At 0026 the morning of November 17 she was found slumped in a chair at bedside with blue lips and pulseless. [facility] was called and compressions were started. Dr. Contreras came from emergency room to oversee resuscitation efforts. Intubation was done at 0049. There was ROSC documented at 0052. She was life flighted to [facility] to an ICU bed. - Time Spent with Patient Total time spent providing and/or coordinating discharge services: - Discharge Medications Prescriptions: No Action Omeprazole [PriLOSEC] 20 mg PO DAILY Albuterol Sulfate [Proventil Hfa] 2 puff IH Q4-6H PRN PRN Reason: Shortness Of Breath Mometasone/Formoterol [Dulera 100 Mcg/5 Mcg Inhaler] 2 puff IH BID Spironolactone [Aldactone] 25 mg PO DAILY Insulin Glargine,Hum.rec.anlog [Lantus Solostar] 40 unit SQ QPM Cyanocobalamin (Vitamin B-12) [Vitamin B12] 1,000 mcg PO DAILY Cholecalciferol (D-3) [Vitamin D] 2,000 unit PO DAILY Ondansetron HCl [Zofran] 4 mg PO Q8H PRN PRN Reason: Nausea Docusate [Colace] 100 mg PO BID Insulin LISPRO [Humalog Kwikpen U-100] 0 - 10 unit SQ ACHS Diltiazem CD (24hr) [Cardizem CD] 120 mg PO DAILY cap.er.24h Budesonide Neb [Pulmicort Neb] 0.25 mg IH BIDRESP inhsol Montelukast [Singulair] 10 mg PO QPM Metoprolol [Lopressor] 50 mg PO BID Oxycodone HCl 5 mg PO Q6HR PRN MDD see notes PRN Reason: Pain Albuterol Neb [Proventil Neb] 2.5 mg IH Q4H PRN PRN Reason: Shortness Of Breath Apixaban [Eliquis] 5 mg PO BID Bumetanide [Bumex] 0.5 mg PO DAILY Dapagliflozin Propanediol [Farxiga] 5 mg PO DAILY Gabapentin [Neurontin] 300 mg PO TID Amitriptyline [Elavil] 50 mg PO DAILY #30 tablet Ascorbic Acid [Vitamin C] 500 mg PO 0630 #30 tablet Digoxin [Lanoxin] 0.125 mg PO DAILY #30 tablet Ferrous Sulfate 325 mg PO 0630 #30 tablet Levothyroxine [Synthroid] 250 mcg PO 0630 #60 tablet Home Medications: Albuterol Neb [Proventil Neb] 2.5 mg IH Q4H PRN 06/01/16 [History] Metoprolol [Lopressor] 50 mg PO BID 06/01/16 [History] Montelukast [Singulair] 10 mg PO QPM 06/01/16 [History] Oxycodone HCl 5 mg PO Q6HR PRN MDD see notes 06/01/16 [History] Apixaban [Eliquis] 5 mg PO BID 10/17/18 [History] Bumetanide [Bumex] 0.5 mg PO DAILY 10/17/18 [History] Dapagliflozin Propanediol [Farxiga] 5 mg PO DAILY 10/17/18 [History] Gabapentin [Neurontin] 300 mg PO TID 10/17/18 [History] Amitriptyline [Elavil] 50 mg PO DAILY #30 tablet 10/31/18 [Rx] Ascorbic Acid [Vitamin C] 500 mg PO 0630 #30 tablet 10/31/18 [Rx] Digoxin [Lanoxin] 0.125 mg PO DAILY #30 tablet 10/31/18 [Rx] Ferrous Sulfate 325 mg PO 0630 #30 tablet 10/31/18 [Rx] Levothyroxine [Synthroid] 250 mcg PO 0630 #60 tablet 10/31/18 [Rx] Albuterol Sulfate [Proventil Hfa] 2 puff IH Q4-6H PRN 11/04/18 [History] Cholecalciferol (D-3) [Vitamin D] 2,000 unit PO DAILY 11/04/18 [History] Cyanocobalamin (Vitamin B-12) [Vitamin B12] 1,000 mcg PO DAILY 11/04/18 [History] Docusate [Colace] 100 mg PO BID 11/04/18 [History] Insulin Glargine,Hum.rec.anlog [Lantus Solostar] 40 unit SQ QPM 11/04/18 [Hist ory] Insulin LISPRO [Humalog Kwikpen U-100] 0 - 10 unit SQ ACHS 11/04/18 [History] Mometasone/Formoterol [Dulera 100 Mcg/5 Mcg Inhaler] 2 puff IH BID 11/04/18 [History] Omeprazole [PriLOSEC] 20 mg PO DAILY 11/04/18 [History] Ondansetron HCl [Zofran] 4 mg PO Q8H PRN 11/04/18 [History] Spironolactone [Aldactone] 25 mg PO DAILY 11/04/18 [History] Budesonide Neb [Pulmicort Neb] 0.25 mg IH BIDRESP inhsol 11/11/18 [Rx] Diltiazem CD (24hr) [Cardizem CD] 120 mg PO DAILY cap.er.24h 11/11/18 [Rx] Allergies/Adverse Reactions: Allergy/AdvReac Type Severity Reaction Status Date / Time Iodinated Contrast- Oral and Allergy Intermediate See Verified 06/01/16 12:33 IV Dye Comments adhesive tape Allergy Itching Verified 06/01/16 12:34 pentazocine [From Talwin] AdvReac Hives Verified 06/01/16 04:54 Date of admission: 11/11/18 16:56 Primary care physician: Luciano Figueroa MD Consults: 11/11/18 17:42 Consult to Occupational Therapy [CONS] Routine Comment: Evaluate, develop and implement POC Reason for Consult: Evaluate, develop and implement POC Does patient have active BEDREST order?: No Is patient medically & hemodynamically stable?: Yes Patient assessed for mobility or mobilized this visit?: No Consult to Physical Therapy [CONS] Routine Comment: Evaluate, develop and implement POC Reason for Consult: Evaluate, develop and implement POC Does patient have active BEDREST order?: No Is patient medically & hemodynamically stable?: Yes Patient assessed for mobility or mobilized this visit?: No - Constitutional Vitals: Temp Pulse Resp BP Pulse Ox 97.3 F L 68 16 159/74 97 11/17/18 03:55 11/17/18 03:55 11/17/18 03:55 11/17/18 03:55 11/17/18 03:55 - Patient Status Disposition: Transfer Other Condition: Critical - Discharge Instructions
== END 2018-11-17 05:01 | disposition other institution (70) | DRG 689 ==
LOC: INPPIK 16:56
PROVIDERS: ADMIT Internal Medicine; ATTEND Internal Medicine